=== PATIENT | male | born 1995 | race Caucasian/White ===

== ENCOUNTER 2019-07-06 16:57 | Inpatient (IN) ==
[2019-07-06] MEDS ORDERED: *HR* Methadone 10 MG TABLET PO ONE (19:25)
[2019-07-06] MEDS ORDERED: 0.9 % Sodium Chloride 1,000 ML IVC ONE (19:51)
[2019-07-06 20:26] LABS: Hematocrit 37.2 % (37.5-50.1); Hemoglobin 12.1 g/dL (12.9-16.9); Lymphocytes # 0.2 K/mcL (0.6-4.6); Mean Corpuscular HGB Conc 32.5 g/dL (31.6-35.5); Mean Corpuscular Hemoglobin 29.7 pg (28.0-33.3); Mean Corpuscular Volume 91.4 fL (83.0-100.0); Mean Platelet Volume 10.4 fL (9.4-12.4); Platelet Count 169 K/mcL (140-400); Red Blood Count 4.07 M/mcL (4.19-5.50); Red Cell Distribution Width 14.3 % (11.5-14.5); White Blood Count 6.9 K/mcL (4.3-11.1)
[2019-07-06 20:48] LABS: Alanine Aminotransferase 50 Units/L (7-52); Albumin 3.3 g/dL (3.5-5.7); Albumin/Globulin Ratio 1.7 (1.1-2.2); Alkaline Phosphatase 60 Units/L (34-104); Aspartate Amino Transferase 76 Units/L (13-39); BUN/Creatinine Ratio 20 (6-26); Bilirubin,Direct 0.7 mg/dL (0.0-0.2); Bilirubin,Indirect 0.4 mg/dL (0.0-1.2); Bilirubin,Total 1.1 mg/dL (0.3-1.0); Blood Urea Nitrogen 29 mg/dL (6-20); Calcium 7.8 mg/dL (8.6-10.3); Carbon Dioxide 21 mEq/L (23-29); Chloride 108 mEq/L (98-107); Glucose 126 mg/dL (70-105); Magnesium 1.3 mg/dL (1.6-2.6); Osmolality,Calculated 289 (280-300); Potassium 3.2 mEq/L (3.5-5.1); Sodium 136 mEq/L (136-145); Total Protein 5.3 g/dL (6.4-8.9); eGFR For African Americans > 60 (> 60); eGFR For Non-African Americans 60 (> 60)
[2019-07-06 20:57] LABS: Band Neutrophils % 15.6 % (0-4); Lymphocytes % 3.1 %; Monocytes # 0.4 K/mcL (0.0-1.3); Monocytes % 6.3 %; Neutrophils # 6.3 K/mcL (1.6-8.9); Platelet Estimate Normal (Normal)
[2019-07-06 21:02] LABS: INR 1.6
[2019-07-06] MEDS ORDERED: Potassium Chloride Elixir 20 MEQ/15 ML UDC PO ONE (21:06)
[2019-07-06] MEDS ORDERED: Ondansetron 4 MG/2 ML VIAL IVP PRN (21:06)
[2019-07-06] MEDS ORDERED: Isovue-370 500 ML BOTTLE IVP ONE (21:07)
[2019-07-06] MEDS ORDERED: Ringers Solution, Lactated 1,000 ML IVC SCH (21:15)
[2019-07-06 21:23] LABS: Ethanol < 10 mg/dL (Less than 10)
--- NOTE | 2019-07-06 21:36 | Internal Med History&Physical ---
Date of Encounter: 07/06/19 Time of Encounter: 21:34 Internal Medicine - H&P: HPI Chief complaint: shaky Admitted From: Home Plans for Post Hospital Care: Home History of present illness: Luis Carlos Braun is a 24 year old man with mood and substance use disorders who was taken by his mother to [facility] with complaints of shakes, stomach cramps and feeling achy all over his body. He reports his last heroin use being a day or 2 ago. He also admitted to auditory and visual hallucinations. His mother says he felt him burning up and with chills while at home. At [facility] it was initially presumed he was undergoing a simple withdrawal syndrome however because he was noted febrile there, he was sent here for further evaluation. He admits to having some diarrhea but no dysuria, chest pain, dyspnea or cough. He denies any other complaints than the aforementioned at this time. Vitals: Reviewed General: Well developed but disheveled and unkempt young man lying comfortably in bed in [facility] Skin: Warm, dry and dirty. HEENT: Moist mucous membranes. No conjunctivae pallor. Neck: No lymphadenopathy. No JVD. No carotid bruits. No palpable thyroid. Chest: Normal thoracic expansion. Normal breath sounds. Clear to auscultation. Heart: Normal S1 & S2; tachycardic. No rubs or murmurs. Abdomen: Non-distended, soft and non-tender to palpation. No peritoneal reaction. Extremities: No clubbing, cyanosis or edema. No calf tenderness. Normal distal pulses. Neurological: Awake, alert and oriented to person, place and time. No focal deficits. Psych: Affect appropriate. Assessment/Plan 1. SIRS: As evidenced by tachycardia and fever. Also seen to be leukopenic with high lactate and with low blood pressures. No evidence of acute infection is present at this time on overt physical exam however given his history, we will need to evaluate for any occult sources. Will send peripheral blood cultures, get a CT scan with contrast of his chest, abdomen and pelvis. Thus far there is no suggestion of skin/soft tissue infection, respiratory, genitourinary, gastrointestinal or [employer]CIAL [employer]ORDING [employer] infection. Will follow up on scans and further studies before commencing antimicrobials if deemed necessary as all these signs could still very well be from his withdrawal syndrome. In the interim provide fluid resuscitation. 2. Substance use disorder: The patient is seen to have both opiates and amphetamines in his system. He is currently undergoing withdrawal symptoms as evidenced by his loose stool, abdominal cramping, generalized aching. Will give a 10mg dose of methadone tonight and if necessary will give benzos/neuroleptics to counter agitation and hallucinations. 3. Abnormal LFTs: Seen to have an AST elevation. Will check ethanol level to ensure this isnt the cause. He does have known viral hepatitis C however. Monitor trend. 4. DVT prophylaxis: Antiembolic stockings ordered. 5. Mood disorder: He has a history of anxiety and depression. He may benefit from social work msw and counseling as an outpatient. 6. Tobacco use disorder: 5 minutes were spent counseling and educating the patient on this habit. business and services instructor and resources were made available. Past Med Surg Social Fam HX - Past Medical History Medical history: hepatitis Additional medical history: latent TB Psychiatric history: anxiety, depression - Past Surgical History Surgical History: no surgical history - Social History Smoking Status: Current every day smoker Packs per day: 1 Smokeless Tobacco Status: No Alcohol use: none Drug use: opiates - Family History Mother Hx Family Medical Disorders: No Internal Medicine - H&P: Meds No Known Home Drugs 07/06/19 [History] Allergy/AdvReac Type Severity Reaction Status Date / Time Amoxicillin Allergy Hives Verified 07/06/19 15:28 doxycycline Allergy Hives Verified 07/06/19 15:28 Penicillins Allergy Hives Verified 07/06/19 15:28 All Systems PM: A 10-system review of systems was performed and is negative for pertinent findings except as documented above in the HPI. - Constitutional Vitals: Temp Pulse Resp BP Pulse Ox 98.1 F 105 20 82/52 99 07/06/19 19:21 07/06/19 19:21 07/06/19 19:21 07/06/19 20:06 07/06/19 19:21 Exam: . Internal Med - H&P Results - Labs CBC & Chem 7: 07/06/19 20:02 07/06/19 20:02 Labs: Short CBC 07/06/19 Range/Units 20:02 WBC 6.9 D (4.3-11.1) K/mcL Hgb 12.1 L D (12.9-16.9) g/dL Hct 37.2 L (37.5-50.1) % Plt Count 169 (140-400) K/mcL Neutrophils # 6.3 (1.6-8.9) K/mcL BMP 07/06/19 20:02 Sodium 136 Potassium 3.2 L Chloride 108 H Carbon Dioxide 21 L BUN 29 H Creatinine 1.44 H Glucose 126 H Calcium 7.8 L Liver Function 07/06/19 Range/Units 20:02 Total Bilirubin 1.1 H (0.3-1.0) mg/dL Direct Bilirubin 0.7 H (0.0-0.2) mg/dL AST 76 H (13-39) Units/L ALT 50 (7-52) Units/L Alkaline Phosphatase 60 (34-104) Units/L Albumin 3.3 L (3.5-5.7) g/dL - Time Spent With Patient Total time spent is greater than 50% in coordination of care (as documented) at patient's floor/unit and/or counseling patient:
[2019-07-06] MEDS ORDERED: *HR* LORazepam 1 MG TABLET PO ONE (22:00)
[2019-07-06] MEDS: 0.9 % Sodium Chloride 1,000 ML IVC SCH (22:03)
[2019-07-07] MEDS: 0.9 % Sodium Chloride 1,000 ML IVC SCH (03:11)
[2019-07-07] MEDS ORDERED: Nicotine 2 MG GUM BC PRN (07:53)
[2019-07-07] MEDS: Nicotine 21 MG PATCH.TD24 TD SCH (08:13)
--- NOTE | 2019-07-07 08:49 | Internal Med Progress Note ---
Hospitalist Progress Note - Encounter Date of Encounter: 07/07/19 Time of Encounter: 08:49 - Subjective Interval History: Patient was seen and examined at bedside. Patient was uncomfortable this morning, complaining of body aches and pains throughout his whole body that he attributed to heroin withdrawal. Patient stated multiple times that he would like to leave the hospital. Endorses feeling nauseous and has chills, but no vomiting or fevers. Patient denies any chest pain or palpitations. - Exam Vitals: Temp Pulse Resp BP Pulse Ox 98.2 F 90 16 102/62 100 07/07/19 08:25 07/07/19 08:25 07/07/19 08:25 07/07/19 08:25 07/07/19 08:25 Exam: GEN: Uncomfortable-appearing, NAD, conversant. HEAD: Normocephalic, atraumatic. EYES: PERRL, pupils less than 2 mm, EOMI, anicteric. ENT: MMM. oropharynx without erythema or drainage. NECK: Supple. No LAD. No stiffness or restricted ROM. No tracheal deviation. HEART: Regular rate and regular rhythm, normal S1/S2, no m/r/g. LUNGS: CTAB, good air exchange bilaterally. No wheezing, rubs, or rhonchi. ABDO: Soft, diffusely tender, nondistended with active bowel sounds. Firm, but no rebound/JVD/guarding. : No suprapubic tenderness or CVA tenderness. BACK: No obvious stepoffs or deformities. EXT: Without cyanosis, clubbing or edema. SKIN: Warm and dry without any rash. NEURO: Grossly nonfocal. Alert and oriented, moving all 4 extremities. CN not formally tested but appear grossly intact. Observed to ambulate with normal gait. PSYCH: Normal affect, anxious appearing. - Assessment and Plan (1) Sepsis associated hypotension Current Visit: Yes Status: Acute Assessment and Plan: Patient initially had 3/4 criteria for SIRS at [place] ED: fever, tachycardia, hypotension. Patient had elevated lactate of 2.9. Was given 2 L normal saline, [address] scan on 07/06 showed bilateral lower lobe interstitial edema, periportal edema, gallbladder wall thickening. No definite source of infection, however concerning for endocarditis and heart failure. Low concern for meningitis, given lack of focal neurologic deficits. Low concern for UTI, given normal UA. No evidence of soft tissue infection or abscess. Low concern for pneumonia, given chest CT results. Plan: - Started empiric treatment with vancomycin and cefepime - Blood cultures pending - Bolus 1 L NS since BPs in 80s to 90s systolic. - Consider pressors if persistently hypotensive (2) Fluid overload Current Visit: Yes Status: Acute Assessment and Plan: Patient has evidence of fluid overload based on CT scan, possibly secondary to heart failure, endocarditis. A TTE was performed on 07/07 which showed LVEF 60%, no vegetations. Still high concern for endocarditis given history of IVDU. Plan: - Cardiology consulted - Consider getting SANDRA (3) Heroin withdrawal Current Visit: Yes Status: Acute Assessment and Plan: Patient presented in opiate withdrawal with cramps and body pains, pinpoint pupils. UDS positive for opiates, amphetamines. Received 10 mg of methadone yesterday. Plan: - No benzos/clonidine due to hypotension - Bentyl PRN for abdominal cramps (4) Abnormal liver enzymes Current Visit: Yes Status: Acute Assessment and Plan: Patient did have an elevated AST of 72. Concern for liver damage in the setting of possible endocarditis. Ethanol level negative. Does have known hepatitis C. - Will continue to trend LFTs (5) Substance abuse Current Visit: Yes Status: Acute Assessment and Plan: Has a history of heroin abuse, tobacco abuse. - Will continue smoking and substance abuse counseling (6) Mood disorder Current Visit: Yes Status: Acute Assessment and Plan: Has a history of depression, anxiety. May benefit from social work consult and outpatient follow-up. (7) Electrolyte abnormality Current Visit: Yes Status: Acute Assessment and Plan: Low potassium of 3.2 on 07/06. - Repleted K orally with elixir - Repleated Mg 2g IV DVT Prophylaxis: - SCDs - Summary of Assessment and Plan Summary of Assessment and Plan: Abdomen/Pelvis CT 07/06/19 21:07 IMPRESSION: Bilateral lower lobe interstitial edema. This may represent manifestation of pneumonia or noncardiogenic pulmonary edema. Mildly enlarged mediastinal and right hilar lymph nodes, likely reactive. There is periportal edema. This is a nonspecific finding that may be seen with acute infection/inflammation, trauma and fluid overload. The liver is enlarged and hepatitis is a consideration. Edematous gallbladder wall thickening and possible pericholecystic fluid. This may be reactive to adjacent liver disease. Intrinsic gallbladder disease not excluded. Mild mural thickening suspected in the right colon/cecum. Nonspecific colitis should be considered. Retroperitoneal fat stranding in the upper abdomen particularly in the region of the celiac axis and gastrohepatic ligament. D/ / Antony Baker MD / Antony Baker MD Interpreting Provider: Antony Baker MD Chest CT 07/06/19 21:07 IMPRESSION: Bilateral lower lobe interstitial edema. This may represent manifestation of pneumonia or noncardiogenic pulmonary edema. Mildly enlarged mediastinal and right hilar lymph nodes, likely reactive. There is periportal edema. This is a nonspecific finding that may be seen with acute infection/inflammation, trauma and fluid overload. The liver is enlarged and hepatitis is a consideration. Edematous gallbladder wall thickening and possible pericholecystic fluid. This may be reactive to adjacent liver disease. Intrinsic gallbladder disease not excluded. Mild mural thickening suspected in the right colon/cecum. Nonspecific colitis should be considered. Retroperitoneal fat stranding in the upper abdomen particularly in the region of the celiac axis and gastrohepatic ligament. D/ / Antony Baker MD / Antony Baker MD Interpreting Provider: Antony Baker MD Echocardiogram 07/07/19 07:25 Impressions: LVEF 60%. Normal LV chamber size, wall thickness and function. Normal left ventricular diastolic function. Normal right ventricular structure and function. No evidence of pulmonary hypertension. No significant valvular dysfunction. No vegetations visualized. Left Ventricular Wall Motion: Rest Echo Findings All wall segments showed normal motion. Findings: Study Quality * Technically adequate exam. ECG Findings * Normal sinus rhythm. Left Ventricle * LVEF 60%. * Normal LV chamber size, wall thickness and function. * Normal left ventricular diastolic function. Right Ventricle * Normal right ventricular structure and function. Left Atrium * Normal left atrial size. Right Atrium * Normal right atrial size. Interatrial Septum * No evidence of PFO by color Doppler. Aortic Valve * Trileaflet aortic valve. * Normal aortic valve function. * No aortic regurgitation. * No aortic stenosis. Mitral Valve * Normal mitral valve structure and function. * No mitral regurgitation. * No mitral stenosis. Tricuspid Valve * Normal tricuspid valve structure and function. * Trace tricuspid regurgitation. * No evidence of pulmonary hypertension. Pulmonic Valve * Normal pulmonic valve structure and function. * Trace pulmonic regurgitation. Aorta * Normally sized aortic root. Pericardium * There is a trivial pericardial effusion present. IVC * Normal IVC dimensions and inspiratory collapse. Pulmonary Artery * Normal visualized portions of the main pulmonary artery. - Time Spent with Patient Total time spent is greater than 50% in coordination of care (as documented) at patient's floor/unit and/or counseling patient: less than 15 minutes Plan of Care Discussed with: patient Internal Medicine: Result - Labs CBC & Chem 7: 07/07/19 08:50 07/07/19 08:50 Labs: Short CBC 07/06/19 Range/Units 20:02 WBC 6.9 D (4.3-11.1) K/mcL Hgb 12.1 L D (12.9-16.9) g/dL Hct 37.2 L (37.5-50.1) % Plt Count 169 (140-400) K/mcL Neutrophils # 6.3 (1.6-8.9) K/mcL BMP 07/06/19 20:02 Sodium 136 Potassium 3.2 L Chloride 108 H Carbon Dioxide 21 L BUN 29 H Creatinine 1.44 H Glucose 126 H Calcium 7.8 L Liver Function 07/06/19 Range/Units 20:02 Total Bilirubin 1.1 H (0.3-1.0) mg/dL Direct Bilirubin 0.7 H (0.0-0.2) mg/dL AST 76 H (13-39) Units/L ALT 50 (7-52) Units/L Alkaline Phosphatase 60 (34-104) Units/L Albumin 3.3 L (3.5-5.7) g/dL - ABG Interpretation ABG results: PT/INR, D-dimer PT 18.0 Seconds (9.4-12.1) H 07/06/19 20:02 - Impressions Impressions Abdomen/Pelvis CT 07/06/19 21:07 IMPRESSION: Bilateral lower lobe interstitial edema. This may represent manifestation of pneumonia or noncardiogenic pulmonary edema. Mildly enlarged mediastinal and right hilar lymph nodes, likely reactive. There is periportal edema. This is a nonspecific finding that may be seen with acute infection/inflammation, trauma and fluid overload. The liver is enlarged and hepatitis is a consideration. Edematous gallbladder wall thickening and possible pericholecystic fluid. This may be reactive to adjacent liver disease. Intrinsic gallbladder disease not excluded. Mild mural thickening suspected in the right colon/cecum. Nonspecific colitis should be considered. Retroperitoneal fat stranding in the upper abdomen particularly in the region of the celiac axis and gastrohepatic ligament. D/ / Antony Baker MD / Antony Baker MD Interpreting Provider: Antony Baker MD Chest CT 07/06/19 21:07 IMPRESSION: Bilateral lower lobe interstitial edema. This may represent manifestation of pneumonia or noncardiogenic pulmonary edema. Mildly enlarged mediastinal and right hilar lymph nodes, likely reactive. There is periportal edema. This is a nonspecific finding that may be seen with acute infection/inflammation, trauma and fluid overload. The liver is enlarged and hepatitis is a consideration. Edematous gallbladder wall thickening and possible pericholecystic fluid. This may be reactive to adjacent liver disease. Intrinsic gallbladder disease not excluded. Mild mural thickening suspected in the right colon/cecum. Nonspecific colitis should be considered. Retroperitoneal fat stranding in the upper abdomen particularly in the region of the celiac axis and gastrohepatic ligament. D/ / Antony Baker MD / Antony Baker MD Interpreting Provider: Antony Baker MD Consult Discharge Plan - Plan Referrals: NONE,PCP [Primary Care Provider] -
[2019-07-07 09:24] LABS: Hematocrit 35.4 % (37.5-50.1); Hemoglobin 11.3 g/dL (12.9-16.9); Mean Corpuscular HGB Conc 31.9 g/dL (31.6-35.5); Mean Corpuscular Hemoglobin 29.6 pg (28.0-33.3); Mean Corpuscular Volume 92.7 fL (83.0-100.0); Mean Platelet Volume 10.9 fL (9.4-12.4); Platelet Count 178 K/mcL (140-400); Red Blood Count 3.82 M/mcL (4.19-5.50)
[2019-07-07 09:25] LABS: White Blood Count 26.4 K/mcL (4.3-11.1)
[2019-07-07 09:27] LABS: VBG HCO3 20 mEq/L (21-27); VBG PCO2 49 mmHg (41-51); VBG PH 7.21 pH Units (7.32-7.42); VBG PO2 39 mmHg (25-50)
[2019-07-07 09:32] LABS: INR 1.8; Prothrombin Time 20.2 Seconds (9.4-12.1)
[2019-07-07 09:54] LABS: Lymphocytes # 1.3 K/mcL (0.6-4.6); Neutrophils # 23.5 K/mcL (1.6-8.9); Platelet Estimate Normal (Normal)
[2019-07-07 10:08] LABS: Alanine Aminotransferase 85 Units/L (7-52); Albumin 3.1 g/dL (3.5-5.7); Albumin/Globulin Ratio 1.4 (1.1-2.2); Alkaline Phosphatase 70 Units/L (34-104); Aspartate Amino Transferase 87 Units/L (13-39); BUN/Creatinine Ratio 20 (6-26); Bilirubin,Direct 0.5 mg/dL (0.0-0.2); Bilirubin,Indirect 0.4 mg/dL (0.0-1.2); Bilirubin,Total 0.9 mg/dL (0.3-1.0); Blood Urea Nitrogen 25 mg/dL (6-20); Calcium 7.4 mg/dL (8.6-10.3); Carbon Dioxide 20 mEq/L (23-29); Chloride 112 mEq/L (98-107); Globulin 2.2 g/dL (2.4-3.5); Glucose 155 mg/dL (70-105); Magnesium 1.5 mg/dL (1.6-2.6); Osmolality,Calculated 296 (280-300); Phosphorous 3.3 mg/dL (2.7-4.5); Potassium 4.3 mEq/L (3.5-5.1); Sodium 139 mEq/L (136-145); Total Protein 5.3 g/dL (6.4-8.9); Troponin I < 0.03 ng/mL (< 0.04); eGFR For African Americans > 60 (> 60); eGFR For Non-African Americans > 60 (> 60)
[2019-07-07] MEDS ORDERED: *HR* Methadone 10 MG TABLET PO ONE (10:23)
[2019-07-07] MEDS ORDERED: Nicotine 14 MG PATCH.TD24 TD SCH (10:30)
[2019-07-07] MEDS ORDERED: Cefepime HCl 2,000 MG in Water for inj. (sterile) 10 ML IVP SCH (11:00)
[2019-07-07] MEDS ORDERED: 0.9 % Sodium Chloride 1,000 ML IVC STA (11:06)
[2019-07-07] MEDS ORDERED: Ketorolac 30 MG/ML VIAL IVP ONE (11:08)
[2019-07-07] MEDS: Cefepime HCl 2,000 MG in Water for inj. (sterile) 20 ML IVP SCH ×2 (11:46→17:27)
--- NOTE | 2019-07-07 14:36 | Cardiology Consult Note ---
<Jan Dale - Last Filed: 07/07/19 14:52> Date of Encounter: 07/07/19 Time of Encounter: 14:32 Assessment and Plan (1) Sepsis associated hypotension Current Visit: Yes Status: Acute Patient initially had 3/4 criteria for SIRS at [facility] ED: fever, tachycardia, hypotension. No definite source of infection. Started empiric treatment with vancomycin and cefepime. Blood cultures pending. IVDU with initial concern for endocarditis. However, TTE showed preserved EF with no significant valvular dysfunction and no vegetations visualized. Can consider SANDRA if blood cultures are positive for staph. No urgent need for SANDRA. If warranted, would be Wednesday. Pt ate lunch <2 hours ago. If he develops more profound hypotension or increased O2 requirements, can repeat surface TTE to re-evaluate valvular function. BNP is borderline--156. There is no evidence of fluid overload on exam or evidence of CHF on TTE--EF 60% with normal diastolic function. Will discuss and review with Dr. Nuñez. Discussion w patient/family: The assessment and plan as outlined above was discussed with the patient and/or family members who expressed understanding and agreement. All questions were answered. Thank you for involving us in the care of your patient. Please call with any questions. I will discuss all the above with Dr. Nuñez and make changes as necessary. History of Present Illness Consult date: 07/07/19 Consult reason: evaluate for CHF, endocarditis Chief complaint: fever History of present illness: Mr. Braun is a 24 year old male with mood and substance use disorders who was taken by his mother to [facility] ER with complaints of shakes, stomach cramps and feeling achy all over his body. He reports his last heroin use being 2-3 days ago.Admits to auditory and visual hallucinations. His mother says he felt him burning up and with chills while at home. Per mother, he has been acting different since May when he came from [place]. At [facility] it was initially presumed he was undergoing a simple withdrawal syndrome however because he was noted febrile there, he was sent here for further evaluation. He admits to having some diarrhea but no dysuria. He now reports chest pain and dyspnea. WBC 26.4. Chest CT Bilateral lower lobe interstitial edema. This may represent manifestation of pneumonia or noncardiogenic pulmonary edema. There is periportal edema. This is a nonspecific finding that may be seen with acute infection/inflammation, trauma and fluid overload. The liver is enlarged and hepatitis is a consideration. Edematous gallbladder wall thickening and possible pericholecystic fluid. This may be reactive to adjacent liver disease. Intrinsic gallbladder disease not excluded. BNP 156, troponin negative. TTE EF preserved, no valvular vegetation noted. Cardiology consulted for further recs. Past Med Surg Social Fam HX - Past Medical History Medical history: hepatitis Additional medical history: latent TB Psychiatric history: anxiety, depression - Past Surgical History Surgical History: no surgical history - Social History Smoking Status: Current every day smoker Packs per day: 1 Smokeless Tobacco Status: No Alcohol use: none Drug use: opiates - Family History Mother Hx Family Medical Disorders: No Medications and Allergies No Known Home Drugs 07/06/19 [History] Allergy/AdvReac Type Severity Reaction Status Date / Time Amoxicillin Allergy Hives Verified 07/06/19 15:28 doxycycline Allergy Hives Verified 07/06/19 15:28 Penicillins Allergy Hives Verified 07/06/19 15:28 All Systems Review: The remainder of the systems were reviewed and are negative - Constitutional Constitutional: chills - Cardiovascular Cardiovascular: as per HPI, chest pain at rest, diaphoresis, dyspnea at rest - Respiratory Respiratory: dyspnea - Psychiatric Psychiatric: hallucinations Physical Examination Vital Signs, Last 4 Hours Temp Pulse Resp BP Pulse Ox 07/07/19 14:05 93/50 07/07/19 10:53 98.7 F 95 20 85/44 96 Vital Signs Temp Pulse Resp BP Pulse Ox 07/07/19 14:05 93/50 07/07/19 10:53 98.7 F 95 20 85/44 96 07/07/19 08:25 98.2 F 90 16 102/62 100 07/07/19 08:06 98 07/07/19 04:55 98 F 91 20 87/49 98 07/06/19 23:02 98.1 F 101 20 90/45 98 07/06/19 20:06 82/52 07/06/19 19:21 98.1 F 105 20 79/40 99 Intake and Output 07/06/19 07/07/19 07/07/19 23:59 07:59 15:59 Intake Total 240 / 240 1000 / 1000 Output Total 450 / 450 0 / 0 Balance -210 / -210 1000 / 1000 0 / 1000 Intake: IV Fluids 1000 / 1000 0.9 % Sodium Chloride 1,000 ML 1000 / 1000 @ 200 mls/hr IVC .Q5H [facility] Rx#: [id number] Oral 240 / 240 Output: Urine 450 / 450 0 / 0 Other: Weight 59.9 kg General: Conversant, No Apparent Distress HEENT: Atraumatic, Normocephaly, Mucus Membranes Moist Neck: No JVD, Normal carotid pulses Cardiac: Reg Rate and Rhythm, Normal S1 and S2, No Murmur Lungs: Normal Breath Sounds, No Wheeze, Rales, Rhonchi Neuro: Alert and responsive, No focal deficits noted Abdomen: Soft, Non-Tender Skin: No rashes noted on visualized skin Musculoskeletal: No Chest Wall Tenderness Extremities: No Clubbing, No Cyanosis, No Edema, Normal Pulses Results 07/07/19 08:50 07/07/19 08:50 Lab Results 07/06/19 07/06/19 07/06/19 20:02 20:02 20:02 WBC 6.9 D Hgb 12.1 L D Hct 37.2 L Plt Count 169 INR APTT 26.7 Sodium 136 Potassium 3.2 L Chloride 108 H Carbon Dioxide 21 L BUN 29 H Creatinine 1.44 H Glucose 126 H Calcium 7.8 L Magnesium 1.3 L Total Bilirubin 1.1 H AST 76 H ALT 50 Alkaline Phosphatase 60 Troponin I B-Natriuretic Peptide 07/06/19 07/07/19 07/07/19 20:02 08:50 08:50 WBC 26.4 H D Hgb 11.3 L Hct 35.4 L Plt Count 178 INR 1.6 1.8 APTT Sodium Potassium Chloride Carbon Dioxide BUN Creatinine Glucose Calcium Magnesium Total Bilirubin AST ALT Alkaline Phosphatase Troponin I B-Natriuretic Peptide 07/07/19 07/07/19 08:50 08:50 WBC Hgb Hct Plt Count INR APTT Sodium 139 Potassium 4.3 D Chloride 112 H Carbon Dioxide 20 L BUN 25 H Creatinine 1.27 Glucose 155 H Calcium 7.4 L Magnesium 1.5 L Total Bilirubin 0.9 AST 87 H ALT 85 H Alkaline Phosphatase 70 Troponin I < 0.03 B-Natriuretic Peptide 156 H Short CBC 07/07/19 07/06/19 Range/Units 08:50 20:02 WBC 26.4 H D 6.9 D (4.3-11.1) K/mcL Hgb 11.3 L 12.1 L D (12.9-16.9) g/dL Hct 35.4 L 37.2 L (37.5-50.1) % Plt Count 178 169 (140-400) K/mcL Neutrophils # 23.5 H 6.3 (1.6-8.9) K/mcL BMP 07/07/19 07/06/19 Range/Units 08:50 20:02 Sodium 139 136 (136-145) mEq/L Potassium 4.3 D 3.2 L (3.5-5.1) mEq/L Chloride 112 H 108 H (98-107) mEq/L Carbon Dioxide 20 L 21 L (23-29) mEq/L BUN 25 H 29 H (6-20) mg/dL Creatinine 1.27 1.44 H (0.70-1.30) mg/dL Glucose 155 H 126 H (70-105) mg/dL Calcium 7.4 L 7.8 L (8.6-10.3) mg/dL Cardiac Enzymes 07/07/19 Range/Units 08:50 Troponin I < 0.03 (< 0.04) ng/mL Liver Function 07/07/19 07/06/19 Range/Units 08:50 20:02 Total Bilirubin 0.9 1.1 H (0.3-1.0) mg/dL Direct Bilirubin 0.5 H 0.7 H (0.0-0.2) mg/dL AST 87 H 76 H (13-39) Units/L ALT 85 H 50 (7-52) Units/L Alkaline Phosphatase 70 60 (34-104) Units/L Albumin 3.1 L 3.3 L (3.5-5.7) g/dL Impressions Abdomen/Pelvis CT 07/06/19 21:07 IMPRESSION: Bilateral lower lobe interstitial edema. This may represent manifestation of pneumonia or noncardiogenic pulmonary edema. Mildly enlarged mediastinal and right hilar lymph nodes, likely reactive. There is periportal edema. This is a nonspecific finding that may be seen with acute infection/inflammation, trauma and fluid overload. The liver is enlarged and hepatitis is a consideration. Edematous gallbladder wall thickening and possible pericholecystic fluid. This may be reactive to adjacent liver disease. Intrinsic gallbladder disease not excluded. Mild mural thickening suspected in the right colon/cecum. Nonspecific colitis should be considered. Retroperitoneal fat stranding in the upper abdomen particularly in the region of the celiac axis and gastrohepatic ligament. D/ / Antony Baker MD / Antony Baker MD Interpreting Provider: Antony Baker MD Chest CT 07/06/19 21:07 IMPRESSION: Bilateral lower lobe interstitial edema. This may represent manifestation of pneumonia or noncardiogenic pulmonary edema. Mildly enlarged mediastinal and right hilar lymph nodes, likely reactive. There is periportal edema. This is a nonspecific finding that may be seen with acute infection/inflammation, trauma and fluid overload. The liver is enlarged and hepatitis is a consideration. Edematous gallbladder wall thickening and possible pericholecystic fluid. This may be reactive to adjacent liver disease. Intrinsic gallbladder disease not excluded. Mild mural thickening suspected in the right colon/cecum. Nonspecific colitis should be considered. Retroperitoneal fat stranding in the upper abdomen particularly in the region of the celiac axis and gastrohepatic ligament. D/ / Antony Baker MD / Antony Baker MD Interpreting Provider: Antony Baker MD Echocardiogram 07/07/19 07:25 Impressions: LVEF 60%. Normal LV chamber size, wall thickness and function. Normal left ventricular diastolic function. Normal right ventricular structure and function. No evidence of pulmonary hypertension. No significant valvular dysfunction. No vegetations visualized. Left Ventricular Wall Motion: Rest Echo Findings All wall segments showed normal motion. Findings: Study Quality * Technically adequate exam. ECG Findings * Normal sinus rhythm. Left Ventricle * LVEF 60%. * Normal LV chamber size, wall thickness and function. * Normal left ventricular diastolic function. Right Ventricle * Normal right ventricular structure and function. Left Atrium * Normal left atrial size. Right Atrium * Normal right atrial size. Interatrial Septum * No evidence of PFO by color Doppler. Aortic Valve * Trileaflet aortic valve. * Normal aortic valve function. * No aortic regurgitation. * No aortic stenosis. Mitral Valve * Normal mitral valve structure and function. * No mitral regurgitation. * No mitral stenosis. Tricuspid Valve * Normal tricuspid valve structure and function. * Trace tricuspid regurgitation. * No evidence of pulmonary hypertension. Pulmonic Valve * Normal pulmonic valve structure and function. * Trace pulmonic regurgitation. Aorta * Normally sized aortic root. Pericardium * There is a trivial pericardial effusion present. IVC * Normal IVC dimensions and inspiratory collapse. Pulmonary Artery * Normal visualized portions of the main pulmonary artery. Active Medications Dicyclomine HCl (Bentyl) 20 mg PO Q6H PRN PRN Reason: cramping Stop: 01/06/20 14:06 Cefepime HCl 2,000 mg/ Sterile (Water) 20 mls @ 300 mls/hr IVP Q8HR JONO Stop: 01/06/20 11:34 Last Admin: 07/07/19 11:46 Dose: 300 mls/hr Documented by: Vancomycin HCl 1,000 mg/ (Sodium Chloride) 250 mls @ 167 mls/hr IVPB Q12H JONO; Protocol Stop: 01/06/20 12:01 Last Admin: 07/07/19 12:59 Dose: 167 mls/hr Documented by: Nicotine (Nicoderm) 21 mg TD DAILY JONO; Protocol Stop: 01/06/20 09:01 Last Admin: 07/07/19 08:13 Dose: 21 mg Documented by: Nicotine Polacrilex (Nicorette Gum) 4 mg BC Q2H PRN PRN Reason: Nicotine Cravings Stop: 01/06/20 07:54 Last Admin: 07/07/19 08:14 Dose: 4 mg Documented by: Ondansetron HCl (Zofran) 4 mg IVP Q6HR PRN; Protocol PRN Reason: Nausea And Vomiting Stop: 01/05/20 21:07 - Imaging and Cardiology Echo: report reviewed - EKG Interpretation EKG results cardiology: personally reviewed (sinus tach, rate 119), other (12 hr tele AVG HR 97, SR) Consult Discharge Plan - Plan Referrals: NONE,PCP [Primary Care Provider] - <Lynette Nuñez - Last Filed: 07/07/19 17:41> Date of Encounter: 07/07/19 - Attending Attestation Patient was seen and evaluated independently by me. Findings, assessment and plan were discussed at length with patient, questions answered. Agree with nurse practitioner's/resident's documentation. Addition as follows, 24yoCM ho active polysubstance abuse including IVDU undergoing detox, sent from OSH for generalized pain, SIRS (fever, hypotension) which improved after IVF . Sepsis w/u and management ongoing. Consulted for suspected endocarditis and SANDRA. CTA B/L, RR, no LE edema, generalized tenderness. TTE preserved LVEF, normal RV function, no significant valvular dysfunction, no PH, no vegetation. Trop neg, BNP 156, Leukocytosis, KASIA resolving. A: SIRS, sepsis, pending blood culture polysubstance abuse, IVDU, ongoing detox P: pt has lunch and unsafe for SANDRA now SANDRA if rogelio aureus bacteremia or clinically indicated, likely need anesthesia given IVDU if respiratory distress or ECG changes, TTE stat [id number] chest CT MPRESSION: Bilateral lower lobe interstitial edema. This may represent manifestation of pneumonia or noncardiogenic pulmonary edema. Mildly enlarged mediastinal and right hilar lymph nodes, likely reactive. There is periportal edema. This is a nonspecific finding that may be seen with acute infection/inflammation, trauma and fluid overload. The liver is enlarged and hepatitis is a consideration. Edematous gallbladder wall thickening and possible pericholecystic fluid. This may be reactive to adjacent liver disease. Intrinsic gallbladder disease not excluded. Mild mural thickening suspected in the right colon/cecum. Nonspecific colitis should be considered. Retroperitoneal fat stranding in the upper abdomen particularly in the region of the celiac axis and gastrohepatic ligament. [id number] TTE Impressions: LVEF 60%. Normal LV chamber size, wall thickness and function. Normal left ventricular diastolic function. Normal right ventricular structure and function. No evidence of pulmonary hypertension. No significant valvular dysfunction. No vegetations visualized. Lynette Nuñez MD, PhD Assessment and Plan Discussion w patient/family: The assessment and plan as outlined above was discussed with the patient and/or family members who expressed understanding and agreement. All questions were answered. Thank you for involving us in the care of your patient. Please call with any questions. History of Present Illness History of present illness: Mr. Braun is a 24 year old male All Systems Review: The remainder of the systems were reviewed and are negative Physical Examination Vital Signs, Last 4 Hours Temp Pulse Resp BP Pulse Ox 07/07/19 16:52 98.5 F 97 18 88/40 98 07/07/19 14:05 93/50 Results 07/07/19 08:50 07/07/19 08:50 Lab Results 07/06/19 07/06/19 07/06/19 20:02 20:02 20:02 WBC 6.9 D Hgb 12.1 L D Hct 37.2 L Plt Count 169 INR APTT 26.7 Sodium 136 Potassium 3.2 L Chloride 108 H Carbon Dioxide 21 L BUN 29 H Creatinine 1.44 H Glucose 126 H Calcium 7.8 L Magnesium 1.3 L Total Bilirubin 1.1 H AST 76 H ALT 50 Alkaline Phosphatase 60 Troponin I B-Natriuretic Peptide 07/06/19 07/07/19 07/07/19 20:02 08:50 08:50 WBC 26.4 H D Hgb 11.3 L Hct 35.4 L Plt Count 178 INR 1.6 1.8 APTT Sodium Potassium Chloride Carbon Dioxide BUN Creatinine Glucose Calcium Magnesium Total Bilirubin AST ALT Alkaline Phosphatase Troponin I B-Natriuretic Peptide 07/07/19 07/07/19 08:50 08:50 WBC Hgb Hct Plt Count INR APTT Sodium 139 Potassium 4.3 D Chloride 112 H Carbon Dioxide 20 L BUN 25 H Creatinine 1.27 Glucose 155 H Calcium 7.4 L Magnesium 1.5 L Total Bilirubin 0.9 AST 87 H ALT 85 H Alkaline Phosphatase 70 Troponin I < 0.03 B-Natriuretic Peptide 156 H
[2019-07-07] MEDS ORDERED: Calcium Gluconate 2,000 MG in 0.9 % Sodium Chloride 100 ML IVPB ONE (17:06)
[2019-07-07 17:21] LABS: Hepatitis B Surface Antigen Nonreactive (Nonreactive)
[2019-07-07 17:50] LABS: Hepatitis B Core IgM Nonreactive (Nonreactive)
[2019-07-07 17:53] LABS: Hepatitis A Antibody IgM Nonreactive (Nonreactive)
[2019-07-07] MEDS ORDERED: Cefepime HCl 1,000 MG in Water for inj. (sterile) 10 ML IVP SCH (18:00)
[2019-07-07 19:16] LABS: Adenovirus Not Detected (Not Detect); Coronavirus 229E Not Detected (Not Detect); Coronavirus HKU1 Not Detected (Not Detect); Coronavirus NL63 Not Detected (Not Detect); Coronavirus OC43 Not Detected (Not Detect); Human Metapneumovirus Not Detected (Not Detect); Human Rhinovirus/Enterovirus Not Detected (Not Detect); Influenza A Subtype 2009 H1 Not Detected (Not Detect); Influenza A Untypeable Not Detected (Not Detect)
[2019-07-07 19:17] LABS: Bordetella Pertussis Not Detected (Not Detect); Chlamydophila pneumoniae Not Detected (Not Detect); Influenza B Not Detected (Not Detect); Mycoplasma pneumoniae Not Detected (Not Detect); Parainfluenza Virus 1 Not Detected (Not Detect); Parainfluenza Virus 2 Not Detected (Not Detect); Parainfluenza Virus 3 Not Detected (Not Detect); Parainfluenza Virus 4 Not Detected (Not Detect); Respiratory Syncytial Virus Not Detected (Not Detect)
[2019-07-07 21:04] LABS: Hepatitis C Virus Antibody Reactive (Nonreactive)
[2019-07-08] MEDS: Cefepime HCl 2,000 MG in Water for inj. (sterile) 20 ML IVP SCH ×3 (00:02→16:01)
[2019-07-08 01:58] LABS: Hematocrit 31.4 % (37.5-50.1); Hemoglobin 10.3 g/dL (12.9-16.9); Mean Corpuscular HGB Conc 32.8 g/dL (31.6-35.5); Mean Corpuscular Hemoglobin 29.6 pg (28.0-33.3); Mean Corpuscular Volume 90.2 fL (83.0-100.0); Mean Platelet Volume 10.6 fL (9.4-12.4); Platelet Count 144 K/mcL (140-400); Red Blood Count 3.48 M/mcL (4.19-5.50); White Blood Count 25.9 K/mcL (4.3-11.1)
[2019-07-08 02:05] LABS: INR 1.7; Prothrombin Time 19.6 Seconds (9.4-12.1)
[2019-07-08 02:18] LABS: Alanine Aminotransferase 54 Units/L (7-52); Albumin 2.7 g/dL (3.5-5.7); Albumin/Globulin Ratio 1.3 (1.1-2.2); Alkaline Phosphatase 76 Units/L (34-104); Aspartate Amino Transferase 37 Units/L (13-39); BUN/Creatinine Ratio 23 (6-26); Bilirubin,Direct 0.1 mg/dL (0.0-0.2); Bilirubin,Indirect 0.3 mg/dL (0.0-1.2); Bilirubin,Total 0.4 mg/dL (0.3-1.0); Blood Urea Nitrogen 23 mg/dL (6-20); Calcium 7.9 mg/dL (8.6-10.3); Carbon Dioxide 21 mEq/L (23-29); Chloride 114 mEq/L (98-107); Globulin 2.1 g/dL (2.4-3.5); Glucose 104 mg/dL (70-105); Osmolality,Calculated 288 (280-300); Potassium 3.8 mEq/L (3.5-5.1); Sodium 137 mEq/L (136-145); Total Protein 4.8 g/dL (6.4-8.9); eGFR For African Americans > 60 (> 60); eGFR For Non-African Americans > 60 (> 60)
[2019-07-08 02:24] LABS: Dohle Bodies Present (Not Present); Lymphocytes # 2.1 K/mcL (0.6-4.6); Monocytes # 0.5 K/mcL (0.0-1.3); Neutrophils # 23.3 K/mcL (1.6-8.9); Platelet Estimate Normal (Normal); Smudge Cells Present (Not Present)
--- NOTE | 2019-07-08 06:57 | Internal Med Progress Note ---
Hospitalist Progress Note - Encounter Date of Encounter: 07/08/19 Time of Encounter: 06:57 - Subjective Interval History: Patient was seen and examined at bedside. No acute events overnight. Blood pressure stable in the 90s to 100 systolic overnight. Did not require fluids. Patient had no complaints this morning, had a good appetite. Patient denies any chest pain, shortness of breath, nausea, vomiting, fevers or chills. We will get a gallbladder ultrasound today. - Exam Vitals: Temp Pulse Resp BP Pulse Ox 98.1 F 84 14 90/45 100 07/08/19 02:18 07/08/19 02:18 07/08/19 02:18 07/08/19 02:18 07/08/19 02:18 Exam: GEN: Well-appearing, NAD, conversant. HEAD: Normocephalic, atraumatic. EYES: PERRL, EOMI, anicteric. ENT: MMM. oropharynx without erythema or drainage. NECK: Supple. No LAD. No stiffness or restricted ROM. No tracheal deviation. HEART: Regular rate and regular rhythm, normal S1/S2, no m/r/g. LUNGS: CTAB, good air exchange bilaterally. No wheezing, rubs, or rhonchi. ABDO: Soft, mildly tender in right upper quadrant, nondistended with active bowel sounds. Firm, but no rebound/rigidity/guarding. : No suprapubic tenderness or CVA tenderness. BACK: No obvious stepoffs or deformities. EXT: Without cyanosis, clubbing or edema. SKIN: Warm and dry without any rash. NEURO: Grossly nonfocal. Alert and oriented, moving all 4 extremities. CN not formally tested but appear grossly intact. PSYCH: Normal affect, anxious appearing. - Assessment and Plan (1) Sepsis associated hypotension Current Visit: Yes Status: Acute Assessment and Plan: Patient initially had 3/4 criteria for SIRS at [facility] ED: fever, tachycardia, hypotension. Patient had elevated lactate of 2.9. Was given 2 L normal saline, [address] scan on 07/06 showed bilateral lower lobe interstitial edema, periportal edema, gallbladder wall thickening. No definite source of infection, however concerning for endocarditis and heart failure. Low concern for meningitis, given lack of focal neurologic deficits. Low concern for UTI, given normal UA. No evidence of soft tissue infection or abscess. Low concern for pneumonia, given chest CT results. Low concern for cholecystitis with gallbladder ultrasound on 07/08 showing contracted GB with wall thickening, no evidence of acute cholecystitis Plan: - Continue empiric treatment with vancomycin and cefepime on 07/07 - Blood cultures pending, one positive with gram-negative rods - Hepatitis C antibody positive consistent with previous diagnosis of hepatitis C - Consider pressors if persistently hypotensive, her sugars have been stable today - WBC down from 26.4-25.9 today, lactate of 1, pro-calcitonin of 50 (2) Fluid overload Current Visit: Yes Status: Resolved Assessment and Plan: Patient has evidence of fluid overload based on CT scan, possibly secondary to heart failure, endocarditis. A TTE was performed on 07/07 which showed LVEF 60%, no vegetations. Still high concern for endocarditis given history of IVDU. Plan: - Cardiology consulted - Consider getting SANDRA - Today patient does not appear clinically fluid overloaded with clear lungs and no lower extremity edema - Will hold off on fluids unless persistently hypotensive (3) Heroin withdrawal Current Visit: Yes Status: Acute Assessment and Plan: Patient presented in opiate withdrawal with cramps and body pains, pinpoint pupils. UDS positive for opiates, amphetamines. Received 10 mg of methadone 07/06. Plan: - No benzos/clonidine due to hypotension - Bentyl PRN for abdominal cramps (4) Abnormal liver enzymes Current Visit: Yes Status: Acute Assessment and Plan: Patient did have an elevated AST of 72 initially. Concern for liver damage in the setting of possible endocarditis. Ethanol level negative. Does have known hepatitis C. Hep panel negative - Will continue to trend LFTs - LFTs are downturning today (5) Substance abuse Current Visit: Yes Status: Acute Assessment and Plan: Has a history of heroin abuse, tobacco abuse. - Will continue smoking and substance abuse counseling - Patient declined have further substance abuse counseling and declined social work visit (6) Mood disorder Current Visit: Yes Status: Acute Assessment and Plan: Has a history of depression, anxiety. May benefit from social work consult and outpatient follow-up. (7) Electrolyte abnormality Current Visit: Yes Status: Acute Assessment and Plan: Low potassium of 3.2 on 07/06. 3.8 today. - Repleted K orally with 20 mEq - Repleted Mg 2g IV on 07/07 DVT Prophylaxis: - SCDs - Time Spent with Patient Total time spent is greater than 50% in coordination of care (as documented) at patient's floor/unit and/or counseling patient: less than 15 minutes Plan of Care Discussed with: patient Internal Medicine: Result - Labs CBC & Chem 7: 07/08/19 01:43 07/08/19 01:43 Labs: Short CBC 07/07/19 07/08/19 Range/Units 08:50 01:43 WBC 26.4 H D 25.9 H (4.3-11.1) K/mcL Hgb 11.3 L 10.3 L (12.9-16.9) g/dL Hct 35.4 L 31.4 L (37.5-50.1) % Plt Count 178 144 (140-400) K/mcL Neutrophils # 23.5 H 23.3 H (1.6-8.9) K/mcL BMP 07/07/19 07/08/19 08:50 01:43 Sodium 139 137 Potassium 4.3 D 3.8 Chloride 112 H 114 H Carbon Dioxide 20 L 21 L BUN 25 H 23 H Creatinine 1.27 1.00 Glucose 155 H 104 Calcium 7.4 L 7.9 L Cardiac Enzymes 07/07/19 Range/Units 08:50 Troponin I < 0.03 (< 0.04) ng/mL Liver Function 07/07/19 07/08/19 Range/Units 08:50 01:43 Total Bilirubin 0.9 0.4 (0.3-1.0) mg/dL Direct Bilirubin 0.5 H 0.1 (0.0-0.2) mg/dL AST 87 H 37 (13-39) Units/L ALT 85 H 54 H (7-52) Units/L Alkaline Phosphatase 70 76 (34-104) Units/L Albumin 3.1 L 2.7 L (3.5-5.7) g/dL - ABG Interpretation ABG results: PT/INR, D-dimer PT 19.6 Seconds (9.4-12.1) H 07/08/19 01:43 - Impressions Impressions Echocardiogram 07/07/19 07:25 Impressions: LVEF 60%. Normal LV chamber size, wall thickness and function. Normal left ventricular diastolic function. Normal right ventricular structure and function. No evidence of pulmonary hypertension. No significant valvular dysfunction. No vegetations visualized. Left Ventricular Wall Motion: Rest Echo Findings All wall segments showed normal motion. Findings: Study Quality * Technically adequate exam. ECG Findings * Normal sinus rhythm. Left Ventricle * LVEF 60%. * Normal LV chamber size, wall thickness and function. * Normal left ventricular diastolic function. Right Ventricle * Normal right ventricular structure and function. Left Atrium * Normal left atrial size. Right Atrium * Normal right atrial size. Interatrial Septum * No evidence of PFO by color Doppler. Aortic Valve * Trileaflet aortic valve. * Normal aortic valve function. * No aortic regurgitation. * No aortic stenosis. Mitral Valve * Normal mitral valve structure and function. * No mitral regurgitation. * No mitral stenosis. Tricuspid Valve * Normal tricuspid valve structure and function. * Trace tricuspid regurgitation. * No evidence of pulmonary hypertension. Pulmonic Valve * Normal pulmonic valve structure and function. * Trace pulmonic regurgitation. Aorta * Normally sized aortic root. Pericardium * There is a trivial pericardial effusion present. IVC * Normal IVC dimensions and inspiratory collapse. Pulmonary Artery * Normal visualized portions of the main pulmonary artery. Consult Discharge Plan - Plan Referrals: NONE,PCP [Primary Care Provider] -
--- NOTE | 2019-07-08 08:03 | Event Note ---
Date of Encounter: 07/08/19 Time of Encounter: 08:01 - Cardiology Event Note Chart reviewed. Vitals currently stable. Saturating well on room air. Cultures still incubating, no growth at this time. Will continue to follow peripherally over the weekend. Please call if further assistance is needed. Will re-evaluate need for SANDRA on Wednesday. Will make NPO after midnight tomorrow night.
[2019-07-08] MEDS: Nicotine 21 MG PATCH.TD24 TD SCH (10:13)
[2019-07-08 15:46] VITALS: BP 101/57
--- NOTE | 2019-07-08 17:24 | Discharge Summary ---
- NOTES TO OUTPATIENT PROVIDER Notes to Outpatient Provider: Patient was admitted to the hospital for sepsis with unknown source. Blood cultures have so far grown gram-negative rods. Was treated with 2 days of vancomycin and cefepime. Patient was persistently hypertensive requiring several fluid boluses. On the third hospital day, patient was insisting on leaving against medical advice. Patient was cautioned thoroughly about the risks of leaving the hospital including worsening of infection, permanent disability, and . Patient still elected to leave AMA. Patient will be given a 7 day course of Omnicef to continue treating bacterial infection. Please follow up blood cultures. Orders not resulted at time of discharge: Pending orders 07/06/19 20:02 Culture,Blood [BC] Stat Date of Encounter: 07/08/19 Time of Encounter: 17:22 Hospital course: Luis Carlos Braun is a 24 year old man with mood and substance use disorders who was taken by his mother to [facility] with complaints of shakes, stomach cramps and feeling achy all over his body. He reports his last heroin use being a day or 2 ago. He also admitted to auditory and visual hallucinations. His mother says he felt him burning up and with chills while at home. At [facility] it was initially presumed he was undergoing a simple withdrawal syndrome however because he was noted febrile there, he was sent here for further evaluation. He admits to having some diarrhea but no dysuria, chest pain, dyspnea or cough. Upon arrival, patient was febrile, tachycardic, hypotensive likely septic shock. Elevated lactate of 2.9. Blood cultures were obtained. Pro-calcitonin of 50. The CT chest/abdomen/pelvis scan showed bilateral lobe interstitial edema, periportal edema, cold bladder wall thickening. He was given 4 L of fluids. He was started on vancomycin and cefepime. Initial presentation showed no definite source of infection however concerning for endocarditis or heart failure. A TTE was performed which showed LVEF of 60% and no vegetation. There is a low concern for meningitis, given the lack of focal neurologic deficits and meningismus. Lung concern for UTI given normal UA. No evidence of soft tissue infection or abscess. Low concern for pneumonia given chest CT findings. Gallbladder ultrasound showed a contracted GB with wall thickening, no evidence of acute cholecystitis. Patient was treated empirically with vancomycin and cefepime for 2 days. Blood culture so far has grown gram-negative rods pending sensitivities. A hepatitis C antibody was positive consistent with previous diagnosis of hepatitis C. Patient did have a transaminitis that was downtrending at discharge. Ethanol level was negative. Patient did present an opiate withdrawal with pinpoint pupils, cramps, body pains. A UDS was positive for opiates and amphetamines. Patient declined substance abuse counseling. On the third hospital day, patient was insisting on leaving against medical advice. Patient was thoroughly explained the consequences of leaving the hospital including worsening infection, permanent disability, . Patient endorsed understanding the consequences of leaving the hospital. Patient was provided 3 doses of Omnicef to further treat his bacterial infection as well as a prescription for 4 additional doses of Omnicef. Patient was provided outpatient primary care referral and return precautions to the emergency department. Discharge discussed with: patient Time spent discussing smoking cessation with patient: 3 to 10 minutes - Time Spent with Patient Total time spent providing and/or coordinating discharge services: Time spent: Less than 30 minutes - Discharge Medications Prescriptions: New Cefdinir [Omnicef] 300 mg PO BID #6 capsule Home Medications: Cefdinir [Omnicef] 300 mg PO BID #6 capsule 07/08/19 [Rx] Allergies/Adverse Reactions: Allergy/AdvReac Type Severity Reaction Status Date / Time Amoxicillin Allergy Hives Verified 07/06/19 15:28 doxycycline Allergy Hives Verified 07/06/19 15:28 Penicillins Allergy Hives Verified 07/06/19 15:28 Date of admission: 07/07/19 21:47 Primary care physician: PCP NONE Consults: 07/06/19 19:40 Consult to Vascular Ultrasound Technician [CONS] Routine Reason for SW Consult: Discharge planning. 07/07/19 13:41 Consult to Cardiology [CONS] Routine Comment: Consulting Provider: Cardiology Fe Reason for Consult: concern for endocarditis, hx of IVDU with fluid overload, elevated BNP Call Completed: Yes Discharging clinician: Seth Grace Anticipated date of discharge: 07/08/19 - Constitutional Vitals: Temp Pulse Resp BP Pulse Ox 98.2 F 74 18 101/57 97 07/08/19 15:39 07/08/19 15:39 07/08/19 15:39 07/08/19 15:39 07/08/19 15:39 Exam: GEN: Well-appearing, NAD, conversant. HEAD: Normocephalic, atraumatic. EYES: PERRL, EOMI, anicteric. ENT: MMM. oropharynx without erythema or drainage. NECK: Supple. No LAD. No stiffness or restricted ROM. No tracheal deviation. HEART: Regular rate and regular rhythm, normal S1/S2, no m/r/g. LUNGS: CTAB, good air exchange bilaterally. No wheezing, rubs, or rhonchi. ABDO: Soft, mildly tender in right upper quadrant, nondistended with active bowel sounds. Firm, but no rebound/rigidity/guarding. : No suprapubic tenderness or CVA tenderness. BACK: No obvious stepoffs or deformities. EXT: Without cyanosis, clubbing or edema. SKIN: Warm and dry without any rash. NEURO: Grossly nonfocal. Alert and oriented, moving all 4 extremities. CN not formally tested but appear grossly intact. PSYCH: Normal affect, anxious appearing. - Patient Status Disposition: Left Against Medical Advice Condition: Fair Functional capacity at discharge: independent ambulation Overall status at discharge: patient is not back to baseline - Discharge Instructions Follow Up With: NONE,PCP [Primary Care Provider] - [facility] [Outside] - Diet and Activity Activity: increase activity as tolerated, resume usual activities as tolerated Diet: advance to your usual diet
[2019-07-08] MEDS ORDERED: Naloxone 0.4 MG/ML INJ IVP ONE (18:24)
[2019-07-08] MEDS ORDERED: Aminoglycoside Consult 1 EACH MC ONE (18:34)
== END 2019-07-08 18:35 | disposition left against medical advice (07) | DRG 871 ==
LOC: 2ANU → SUATTDRO 19:04
PROVIDERS: ADMIT Internal Medicine; ATTEND Internal Medicine

== ENCOUNTER 2019-07-11 00:59 | Inpatient (IN) ==
[2019-07-11] MEDS ORDERED: Naloxone 0.4 MG/ML INJ IVP PRN (04:43)
--- NOTE | 2019-07-11 05:02 | Internal Med History&Physical ---
Date of Encounter: 07/11/19 Time of Encounter: 04:30 Internal Medicine - H&P: HPI Chief complaint: Chest Pain/General Illness Admitted From: Hospital to Hospital Transfer ([facility]) Plans for Post Hospital Care: Home History of present illness: Mr. Braun is a 24 year old male with past medical history significant for Hepatitis C, anxiety, depression, IV drug abuse, and tobacco abuse on no daily medications who presents as hospital transfer from [facility] for multiple complaints. Patient reports not feeling well in general. Has been having chest pain, hallucinations, hypotension, generalized aches, pains, diaphoresis, and nausea getting progressively worse since leaving [facility] on 07/08/19. Patient reports he was not having any chest pain when previously admitted, that this has developed over past few days and is described as intermittent pressure in his left chest that resolves spontaneously and is rated at 9/10 when at its worst. Also reports checking blood pressures at home and t hey have been low with systolic readings under 100. Otherwise hes experiencing similar general complaints he did at his last presentation. Patient reports his hallucinations come and go and have been occurring for several months and are nothing new. Patient was admitted on 07/06/19 after being transferred from [facility] for what was initially thought to be drug withdrawal symptoms but was found to have fever and abnormal labs indicating infection of unknown origin. He was given fluid resuscitation and started on Vancomycin and Cefepime. During that stay a TTE was performed showing 60% EF and no vegetation, negative UA, no evidence of skin infection, low concern for pneumonia from chest CT, normal chest xray, and gallbladder ultrasound with gallbladder wall thickening but no evidence of acute cholecystitis. A SANDRA was being considered for further evaluation given no other source of infection identified and history of IV drug abuse, however patient left [place] before obtaining and did not fill his outpatient antibiotics. REview of blood cultures from previous admission show 1/4 positive for pantoea agglomerans. Sending ER obtained a head CT which no acute intracranial abnormality. Sending ER obtained EKG which showed sinus rhythm. Sending ER obtained UA which was negative. Sending ER also obtained labs including CBC, BMP, Lactic Acid, CRP, Troponin, Ammonia, Lipase, and Magnesium all of which were in normal limits besides Hemoglobin of 13.0, Lactic Acid of 1.5, CRP of 2.6. Patient reports receiving only zofran while at sending ER. Currently denies any headache, numbness, tingling, chest pain, shortness of breath, abdominal pain, nausea, bowel or bladder changes. Just states he has generalized aches and pains currently. Denies regularly following with a PCP or any other provider. Reports continued IV drug abuse with heroin and methamphetamine with last use 2 days ago. Also reports smoking half pack of cigarettes daily. Denies any alcohol use. Past Med Surg Social Fam HX - Past Medical History Medical history: hepatitis Additional medical history: Hepatitis C. Latent TB Psychiatric history: anxiety, depression - Past Surgical History Surgical History: no surgical history - Social History Smoking Status: Current every day smoker Packs per day: 0.5 Smokeless Tobacco Status: No Alcohol use: none Drug use: opiates, IV Drug Use, other Internal Medicine - H&P: Meds Cefdinir [Omnicef] 300 mg PO BID #6 capsule 07/08/19 [Rx] Allergy/AdvReac Type Severity Reaction Status Date / Time Amoxicillin Allergy Hives Verified 07/06/19 15:28 doxycycline Allergy Hives Verified 07/06/19 15:28 Penicillins Allergy Hives Verified 07/06/19 15:28 All Systems PM: A 10-system review of systems was performed and is negative for pertinent findings except as documented above in the HPI. - Constitutional Vitals: Temp Pulse Resp BP Pulse Ox 97.9 F 63 15 149/81 99 07/11/19 03:25 07/11/19 03:25 07/11/19 03:25 07/11/19 03:25 07/11/19 03:25 Exam: General: Alert and oriented. Skin:Normal color, no rash, no lesions. Cardiovascular:Normal S1 & S2, no rubs, murmurs or gallops. No JVD. Pulse regular. Lungs:Breath sounds decreased, no wheezes or crackles. Abdomen:Soft, non-tender, no rigidity. Extremities:No deformity, no edema or tenderness, no joint swelling or clubbing. Neurological:Normal cognition and motor skills. Pulses:Carotid and radial pulses normal +2. Rest of the physical exam is non contributory. - Assessment and Plan (1) Chest pain Current Visit: Yes Status: Acute Assessment and plan: Intermittent left sided chest pain over past few days. Initial troponin at sending ER negative, serial troponins ordered. Continuous cardiac monitoring. TTE completed during last admission showing 60% EF and no vegetation, SANDRA was being considered. Cardiology consult ordered, will need called in a.m. Qualifiers: Chest pain type: unspecified Qualified Code(s): R07.9 - Chest pain, unsp ecified (2) Elevated lactic acid level Current Visit: Yes Status: Acute Assessment and plan: Elevated at 1.5 at sending ER with their normal range of 0.3 to 1.3. 2L fluid bolus ordered. Repeat labs ordered. Repeat blood cultures ordered. Previous cultures 1/4 positive for pantoea agglomerans. No increased white blood cell count or fever, blood pressure stable. Received Vancomycin and Cefepime during last admission and did not fill outpatient antibiotics. A SANDRA was being considered during last admission for further evaluation given no other source of infection identified and history of IV drug abuse. (3) General ill feeling Current Visit: Yes Status: Acute Assessment and plan: Possibly secondary to underlying infection and/or drug withdrawal. Plan as stated above. (4) Hepatitis C Current Visit: Yes Status: Chronic Assessment and plan: Chronic, continue to monitor. Labs ordered. Qualifiers: Viral hepatitis chronicity: chronic Qualified Code(s): B18.2 - Chronic viral hepatitis C (5) IV drug abuse Current Visit: Yes Status: Chronic Assessment and plan: Cessation strongly encouraged. senior manager creative services consult ordered. (6) Tobacco abuse Current Visit: Yes Status: Chronic Assessment and plan: Cessation strongly encouraged. - Time Spent With Patient Total time spent is greater than 50% in coordination of care (as documented) at patient's floor/unit and/or counseling patient:
[2019-07-11] MEDS: 0.9 % Sodium Chloride 1,000 ML IVC SCH ×2 (05:16→06:41)
[2019-07-11 05:35] LABS: Basophils % 0.3 %; Eosinophils # 0.1 K/mcL (0.0-0.6); Eosinophils % 0.8 %; Hematocrit 38.2 % (37.5-50.1); Immature Granulocytes % 1.7 % (0-4); Lymphocytes # 2.6 K/mcL (0.6-4.6); Lymphocytes % 32.9 %; Mean Corpuscular HGB Conc 33.5 g/dL (31.6-35.5); Mean Corpuscular Hemoglobin 29.5 pg (28.0-33.3); Monocytes # 0.5 K/mcL (0.0-1.3); Monocytes % 6.2 %; Neutrophils # 4.5 K/mcL (1.6-8.9); Platelet Count 190 K/mcL (140-400); Red Blood Count 4.34 M/mcL (4.19-5.50); Red Cell Distribution Width 14.1 % (11.5-14.5); Segmented Neutrophils % 58.1 %
[2019-07-11 05:40] LABS: Hemoglobin 12.8 g/dL (12.9-16.9); White Blood Count 7.8 K/mcL (4.3-11.1)
[2019-07-11 05:45] LABS: Alanine Aminotransferase 29 Units/L (7-52); Albumin 3.6 g/dL (3.5-5.7); Albumin/Globulin Ratio 1.3 (1.1-2.2); Alkaline Phosphatase 82 Units/L (34-104); Aspartate Amino Transferase 16 Units/L (13-39); BUN/Creatinine Ratio 16 (6-26); Bilirubin,Total 0.3 mg/dL (0.3-1.0); Blood Urea Nitrogen 13 mg/dL (6-20); Calcium 8.9 mg/dL (8.6-10.3); Carbon Dioxide 28 mEq/L (23-29); Chloride 103 mEq/L (98-107); Globulin 2.8 g/dL (2.4-3.5); Glucose 101 mg/dL (70-105); Osmolality,Calculated 290 (280-300); Potassium 3.6 mEq/L (3.5-5.1); Sodium 140 mEq/L (136-145); Total Protein 6.4 g/dL (6.4-8.9); eGFR For African Americans > 60 (> 60); eGFR For Non-African Americans > 60 (> 60)
[2019-07-11 09:37] LABS: Bilirubin,Urine Negative (Negative); Blood,Urine Negative (Negative); Clarity,Urine Clear (Clear); Color,Urine Yellow (Yellow); Glucose,Urine (UA) Normal (Normal); Ketones,Urine Negative (Negative); Leukocyte Esterase,Urine Negative (Negative); Nitrite,Urine Negative (Negative); PH,Urine 6.5 pH Units (5.0-8.0); Protein,Urine Negative (Neg-Trace); Specific Gravity,Urine 1.016 (1.010-1.025); Urobilinogen,Urine Normal (Normal)
[2019-07-11] MEDS ORDERED: levoFLOXacin 750 MG TABLET PO SCH (09:45)
[2019-07-11 09:50] LABS: Amphetamine Screen,Urine Positive ng/mL (Cutoff=1000); Barbiturate Screen,Urine Negative ng/mL (Cutoff=200); Benzodiazepines Screen,Urine Negative ng/mL (Cutoff=200); Cannabinoid Screen,Urine Negative ng/mL (Cutoff = 50); Cocaine Screen,Urine Negative ng/mL (Cutoff= 300); Opiate Screen,Urine Positive ng/mL (Cutoff=300); Phencyclidine Screen,Urine Negative ng/mL (Cutoff=25)
[2019-07-11] MEDS: Nicotine 21 MG PATCH.TD24 TD SCH (10:17)
--- NOTE | 2019-07-11 15:12 | Internal Med Progress Note ---
Hospitalist Progress Note - Encounter Date of Encounter: 07/11/19 Time of Encounter: 08:30 - Subjective Interval History: Mr. Braun presented to [facility] c/o worsening generalized malaise, pains, diaphoresis, and nausea. Pt has hx of HepC, IV drug use (last use was heroin and amph 07/09/19), and anxiety. Pt was examined at bedside today. He reports feeling better than last time he was admitted; admits to generalized mid-abdominal pain, intermittent chest tightness, and intermittent nausea/diarrhea. Pt reported that his feet were swollen yesterday. Denied hallucinations today, but admitted to some yesterday. Denied fever, chills, night sweats, [place], palpitations, cough, wheezing or vomitting. - Exam Vitals: Temp Pulse Resp BP Pulse Ox 98.1 F 55 16 151/84 98 07/11/19 11:14 07/11/19 11:14 07/11/19 11:14 07/11/19 11:14 07/11/19 11:14 Exam: General: pleasant, well-nourished, in no acute distress Heart: RRR, no thrill or heaves, capillary refill <1sec Resp: CTA b/l, no crackles, rhonci, or wheezing. No accessory muscle use. No cyanosis. HENT: PERRLA, no mouth lesions, neck supple, no lymphadenopathy, no thyromegaly Abdomen: tender to palpation, soft, non-distended, round abdomen, normoactive bowel sounds x4 Skin: warm, dry, and intact, no rashes : no bladder tenderness MSK: no ankle swelling noted, no nail lesions or abnormalities Neuro: alert and oriented, comprehends and answers questions appropriately; strength 5/5 UE and LE b/l - Summary of Assessment and Plan Summary of Assessment and Plan: Mr. Braun is a 24yo gentleman who returned to ED d/t worsening of generalized pain, malaise, and nausea. PMH of HepC, IV drug use, 1/2 +BCx from 07/06/19 grew Pantoea agglomerans. Lactic acid 1.3, wbc 7.8, procalcitonin 3.81. Head CT, ECG, UA, HIV sero all neg. UA +opioids and amph. 1- Gram-negative bactermia: positive BCx P. agglomerans (8/8/19) - Resume targeted tx of Levofloxacin 750mg po since pt left A[facility] last visit before completing dose 2- Generalized malaise - Order CMP to assess LFTs - Pending BCx x2 3- Chest pain: 07/10/19 ECG neg, 07/06/19 TTE neg, 1/ BCx +P. agglomerans - Cardio consult in place; awaiting further rec's - SANDRA order placed to assess to IE vegetations 4- IV drug use - Naloxone 0.4mg IVP prn - Time Spent with Patient Total time spent is greater than 50% in coordination of care (as documented) at patient's floor/unit and/or counseling patient: Internal Medicine: Result - Labs CBC & Chem 7: 07/11/19 05:06 07/11/19 05:06 Labs: Short CBC 07/11/19 Range/Units 05:06 WBC 7.8 D (4.3-11.1) K/mcL Hgb 12.8 L D (12.9-16.9) g/dL Hct 38.2 (37.5-50.1) % Plt Count 190 (140-400) K/mcL Neutrophils # 4.5 (1.6-8.9) K/mcL BMP 07/11/19 05:06 Sodium 140 Potassium 3.6 Chloride 103 Carbon Dioxide 28 BUN 13 Creatinine 0.79 Glucose 101 Calcium 8.9 Cardiac Enzymes 07/11/19 Range/Units 05:06 Troponin I < 0.03 (< 0.04) ng/mL Liver Function 07/11/19 Range/Units 05:06 Total Bilirubin 0.3 (0.3-1.0) mg/dL AST 16 (13-39) Units/L ALT 29 (7-52) Units/L Alkaline Phosphatase 82 (34-104) Units/L Albumin 3.6 (3.5-5.7) g/dL Urine 07/11/19 Range/Units 09:22 Urine Color Yellow (Yellow) Urine Clarity Clear (Clear) Urine pH 6.5 (5.0-8.0) pH Units Ur Specific [place] 1.016 (1.010-1.025) Urine Protein Negative (Neg-Trace) mg/dL Urine Glucose (UA) Normal (Normal) mg/dL Consult Discharge Plan - Plan Referrals: NONE,PCP [Primary Care Provider] -
[2019-07-12] MEDS ORDERED: *HR* OxyCODONE Immed Rel 5 MG TABLET PO ONE (01:12)
--- NOTE | 2019-07-12 04:46 | Event Note ---
Date of Encounter: 07/12/19 Time of Encounter: 04:10 Alerted by patient's nurse that lab called positive blood culture results. Blood cultures done at [facility] on 07/06/19 showed positive yeast in blood as well as Pantoea agglomerans. Patient currently on IVPB Levaquin which is contraindicated with fluconazole for current yeast in blood due to high risk for QT prolongation and Torsades de pointes. Levaquin DC'd and replaced with aztreonam IVPB 1000 mg every 8 hour and fluconazole IVPB 400 mg daily ordered for infection coverage. Nurse alerted of abx changes and instructed to notify me immediately of any adverse changes.
[2019-07-12 04:50] LABS: Basophils % 0.5 %; Eosinophils % 0.3 %; Hemoglobin 12.8 g/dL (12.9-16.9); Immature Granulocytes % 2.5 % (0-4); Lymphocytes # 2.1 K/mcL (0.6-4.6); Lymphocytes % 23.4 %; Mean Corpuscular HGB Conc 32.8 g/dL (31.6-35.5); Mean Corpuscular Hemoglobin 28.5 pg (28.0-33.3); Mean Corpuscular Volume 86.9 fL (83.0-100.0); Mean Platelet Volume 11.6 fL (9.4-12.4); Monocytes # 0.5 K/mcL (0.0-1.3); Platelet Count 205 K/mcL (140-400); Red Blood Count 4.49 M/mcL (4.19-5.50); Red Cell Distribution Width 13.7 % (11.5-14.5); Segmented Neutrophils % 67.3 %; White Blood Count 8.9 K/mcL (4.3-11.1)
[2019-07-12 05:14] LABS: BUN/Creatinine Ratio 19 (6-26); Blood Urea Nitrogen 14 mg/dL (6-20); Calcium 8.9 mg/dL (8.6-10.3); Carbon Dioxide 24 mEq/L (23-29); Chloride 105 mEq/L (98-107); Glucose 150 mg/dL (70-105); Osmolality,Calculated 285 (280-300); Potassium 3.8 mEq/L (3.5-5.1); Sodium 136 mEq/L (136-145); eGFR For African Americans > 60 (> 60); eGFR For Non-African Americans > 60 (> 60)
[2019-07-12] MEDS: Aztreonam 1,000 MG in 0.9 % Sodium Chloride Mini Bag 100 ML IVPB SCH ×2 (08:12→16:58)
[2019-07-12] MEDS: Nicotine 21 MG PATCH.TD24 TD SCH (08:13)
--- NOTE | 2019-07-12 09:02 | Internal Med Progress Note ---
<Emiliano Ag F - Last Filed: 07/12/19 12:35> Hospitalist Progress Note - Encounter Date of Encounter: 07/12/19 Time of Encounter: 09:02 - Subjective Interval History: Patient was seen and examined at bedside. No acute events overnight. Patient endorses some lower back pain, but no chest pain this morning. He feels significantly better compared to over the weekend. Denies any nausea, vomiting, fevers, chills, abdominal pain, constipation, diarrhea. - Exam Vitals: Temp Pulse Resp BP Pulse Ox 98.3 F 80 16 107/63 96 07/12/19 07:11 07/12/19 07:11 07/12/19 07:11 07/12/19 07:11 07/12/19 07:11 Exam: General: pleasant, well-nourished, in no acute distress HEENT: NC/AT, PERRLA, no mouth lesions, neck supple, no lymphadenopathy, no thyromegaly Heart: RRR, no thrill or heaves, capillary refill <1sec Resp: CTA b/l, no crackles, rhonci, or wheezing. No accessory muscle use. No cyanosis. Abdomen: diffusely tender to palpation, non-distended abdomen, active bowel sounds x4, firm but not rigid, no rebound/guarding Skin: warm, dry, and intact, no rashes : no bladder tenderness or CVA tenderness MSK: no ankle swelling noted, no nail lesions or abnormalities Neuro: alert and oriented, comprehends and answers questions appropriately; strength 5/5 UE and LE b/l Pysch: normal affect, no depressed or anxious. - Assessment and Plan (1) Chest pain Current Visit: Yes Status: Acute Assessment and Plan: Patient presented with chest pain in the setting of IVDU. Currently without chest pain. Concern for endocarditis, prev TTE showed normal EF with no vegetations. Plan: - Will get CTA chest to assess for PE, septic emboli, pericarditis - Consider cardiology consult, consider SANDRA for further evaluation (2) Bacteremia Current Visit: Yes Status: Acute Assessment and Plan: Patient had positive blood culture showing gram-negative bacteria and yeast. Concern for blood culture contamination versus bacteremia secondary to multiple organisms with possible immunocompromise. Plan: - Repeated blood cultures, will tailor abx therapy as needed - Stopped levaquin, started on aztreonam and fluconazole - ID consulted regarding changing abx/antifungal treatment - Monitor vital signs, labs, clinical picture for sepsis - Consider lumbar/sacral MRI for back pain, possible abscess/osteomyelitis (3) Hepatitis C Current Visit: Yes Status: Chronic Assessment and Plan: Chronic issue. LFTs are normal. (4) IV drug abuse Current Visit: Yes Status: Chronic Assessment and Plan: Hx of heroin, meth use. UDS pos for opiates and methamphetamines. - Counseling was provided - Consult placed to child protective services social worker - Naloxone 0.4 mg IVP when necessary (5) General ill feeling Current Visit: Yes Status: Acute Assessment and Plan: CMP shows LFTs within normal limits. Pending repeat blood cultures 2. DVT Prophylaxis: DVT ppx: SCDs Activity: ambulatory FEN: No fluids, replete as necessary, RLD GI ppx: N/A Lines: 1x PIV Consults: ID Code: Full code Dispo: Pending further evaluation and treatment - Time Spent with Patient Total time spent is greater than 50% in coordination of care (as documented) at patient's floor/unit and/or counseling patient: less than 15 minutes Plan of Care Discussed with: patient Internal Medicine: Result - Labs CBC & Chem 7: 07/12/19 03:20 07/12/19 03:20 Labs: Short CBC 07/12/19 Range/Units 03:20 WBC 8.9 (4.3-11.1) K/mcL Hgb 12.8 L (12.9-16.9) g/dL Hct 39.0 (37.5-50.1) % Plt Count 205 (140-400) K/mcL Neutrophils # 6.0 (1.6-8.9) K/mcL BMP 07/12/19 03:20 Sodium 136 Potassium 3.8 Chloride 105 Carbon Dioxide 24 BUN 14 Creatinine 0.74 Glucose 150 H Calcium 8.9 Urine 07/11/19 Range/Units 09:22 Urine Color Yellow (Yellow) Urine Clarity Clear (Clear) Urine pH 6.5 (5.0-8.0) pH Units Ur Specific [place] 1.016 (1.010-1.025) Urine Protein Negative (Neg-Trace) mg/dL Urine Glucose (UA) Normal (Normal) mg/dL Consult Discharge Plan - Plan Referrals: Soraya Knowles OUTREACH MANAGER [Advanced Practice Nurse] - 07/21/19 1:00 pm (Please arrive to appointment 30 minutes prior to appointment time to fill out all necessary paperwork. Please bring ID, insurances, and all medications in bottles. If you can not make it to appointment, please call ahead of time 24 hours to cancel/reschedule.) <ChuckygabrielaRob brittul Vanessahollie - Last Filed: 07/12/19 16:00> Hospitalist Progress Note - Encounter Date of Encounter: 07/12/19 - Exam Vitals: Temp Pulse Resp BP Pulse Ox 98.1 F 68 16 124/70 100 07/12/19 10:59 07/12/19 10:59 07/12/19 10:59 07/12/19 10:59 07/12/19 10:59 - Assessment and Plan (1) Chest pain Current Visit: Yes Status: Acute (2) Elevated lactic acid level Current Visit: Yes Status: Acute (3) Hepatitis C Current Visit: Yes Status: Chronic (4) IV drug abuse Current Visit: Yes Status: Chronic (5) Tobacco abuse Current Visit: Yes Status: Chronic (6) General ill feeling Current Visit: Yes Status: Acute - Time Spent with Patient Total time spent is greater than 50% in coordination of care (as documented) at patient's floor/unit and/or counseling patient: Internal Medicine: Result - Labs CBC & Chem 7: 07/12/19 03:20 07/12/19 03:20 Labs: Short CBC 07/12/19 Range/Units 03:20 WBC 8.9 (4.3-11.1) K/mcL Hgb 12.8 L (12.9-16.9) g/dL Hct 39.0 (37.5-50.1) % Plt Count 205 (140-400) K/mcL Neutrophils # 6.0 (1.6-8.9) K/mcL BMP 07/12/19 03:20 Sodium 136 Potassium 3.8 Chloride 105 Carbon Dioxide 24 BUN 14 Creatinine 0.74 Glucose 150 H Calcium 8.9 - Impressions Impressions Chest CTA 07/12/19 12:16 IMPRESSION: No evidence of acute pulmonary embolism. Small bilateral pleural effusions and bibasilar pulmonary opacities are new since previous examination. No evidence of focal consolidative pneumonia. No evidence of cavitary pulmonary nodule to suggest septic embolism. Contrast density material within the stomach presumably represents recently ingested material. Possibility of upper GI bleeding should be excluded clinically. Reflux of contrast into the IVC may be seen in setting of right heart failure. Clinical correlation is recommended. The findings were sent to the Radiology Results Communication Center at 1:25 pm on 07/12/2019to be communicated to a licensed caregiver. D/ / 07/12/2019 13:29:12 Anil Beltran [facility] Interpreting Provider: Anil Beltran MD - Attending Attestation I examined this patient and my medical decision-making was reviewed with the Resident Physician. I agree with the documented findings, disposition and treatment plan as described except to the extent set forth below. <Emiliano Ag - Last Filed: 07/12/19 12:35> (1) Chest pain Qualifiers: Chest pain type: unspecified Qualified Code(s): R07.9 - Chest pain, unspecified (3) Hepatitis C Qualifiers: Viral hepatitis chronicity: chronic Qualified Code(s): B18.2 - Chronic viral hepatitis C <Amparo Langford - Last Filed: 07/12/19 16:00> (1) Chest pain Qualifiers: Chest pain type: unspecified Qualified Code(s): R07.9 - Chest pain, unspecified (3) Hepatitis C Qualifiers: Viral hepatitis chronicity: chronic Qualified Code(s): B18.2 - Chronic viral hepatitis C
[2019-07-12] MEDS ORDERED: Fluconazole 400 MG/200 ML 400 MG/200 ML BAG IVPB SCH (10:00)
[2019-07-12] MEDS ORDERED: Isovue-370 500 ML BOTTLE IVP ONE (12:16)
--- NOTE | 2019-07-12 16:29 | Infectious Disease Consult ---
Infectious Disease-Consult - Encounter Date/Time Date of Encounter: 07/12/19 Time of Encounter: 16:03 - Data of Consult Patient: new to practice Reason for consult: Bacteremia with gram-negative robert and Aziza species Consult date: 07/12/19 Requesting Physician: Amparo Langford MD Primary Care Provider: PCP NONE - HPI HPI: Patient is a 24-year-old gentleman who was admitted to [facility] 07/11/2019 as a tra nsfer from [facility] emergency department for chest pain and generalized illness. We are consulted on 07/12/2019 for bacteremia and antibiotic recommendations. Briefly, patient is a 24-year-old gentleman who presented to [facility] on 07/06/2019 with chills and rigors. At that time CT chest revealed bilateral lower lobe interstitial edema. It may have represented pneumonia or noncardiogenic pu lmonary edema. Mild enlargement the Estinyl and right hilar lymph nodes likely reactive.. Oral edema liver is enlarged and hepatitis is a consideration." Those gallbladder wall thickening and possible pericholecystic fluid. Mild purulent thickening suspecting of the right colon/cecum. Retroperitoneal fat stranding in the upper abdomen. At that time initially had leukopenia with WBC of 25 that jumped to 25.9 with bandemia on 07/08/2019. Patient had an echocardiogram which showed no vegetation. Patient apparently signed out AGAINST MEDICAL ADVICE and was given Omnicef. Patient was doing worse clinically and he was having chest pain feeling with fatigued and weak and decided to come back for evaluation. Since admission, patient was afebrile, had episodes of tachycardia, without tach ypnea. Presenting labs revealed a WBC of 7.8 with normal differential. Rest of the chemistry showed normal BUN and creatinine, normal LFTs, normal bilirubin. Pro calcitonin was elevated at 3.81. A urinalysis was within normal limits. Urine drug screen was positive for opiates and amphetamines. HIV testing was negative. Repeat blood cultures were obtained and patient was started on aztreonam and fluconazole. We were asked to evaluate the patient's make further recommendations. Currently patient laying in bed appears comfortable no acute distress. Girlfriend is at bedside. Patient tells me he had hepatitis about 5 years ago. 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 That happened about 10 years ago w hen he was 12 or 13. Patient is also allergic to amoxicillin, penicillin and doxycycline all of which cause him to have a rash. Patient's review of system is positive for pleuritic chest pain, generalized fatigue and weakness, tenderness over the thoracic and lumbar spine on physical exam. No nausea no vomiting no diarrhea no constipation no abdominal pain no urinary symptoms. - ROS Review of Systems: 10 point review of systems done, negative other for what mentioned in history of present illness - Results CBC & Chem 7: 07/12/19 03:20 07/12/19 03:20 - Exam Vitals: Temp Pulse Resp BP Pulse Ox 98.1 F 68 16 124/70 100 07/12/19 10:59 07/12/19 10:59 07/12/19 10:59 07/12/19 10:59 07/12/19 10:59 Exam: GENERAL: Laying in bed, appears comfortable. HEAD: Normocephalic atraumatic EYES: PERRLA, EOMI, no conjunctival hemorrhage, sclera anicteric ENT: Mucous membranes moist, no oral thrush NECK: Supple. No meningeal signs. No masses LUNGS: Chest expanding symmetrically. Lungs sounds audible both lung don. No wheezing, no rhonchi CV: RRR, S1S2, he does have a murmur that is high patient states 2 out of 6 that is audible on the left sternal border ABDOMEN: Soft, nontender, nondistended. Bowel sounds audible BACK: No CVA tenderness. Normal inspection. There are 2 tender spots 1 and the lumbosacral area and one in the thoracic area. EXTREMITY: Adequate perfusion. No joint effusion. SKIN: Normal color. No rash. No endocarditis stigmata NEURO: Awake alert oriented 3. No obvious focal deficit PSYCH: Calm and appropriate. No agitation. No Known Home Drugs 07/11/19 [History] Allergy/AdvReac Type Severity Reaction Status Date / Time Amoxicillin Allergy Hives Verified 07/11/19 16:06 doxycycline Allergy Hives Verified 07/11/19 16:06 Penicillins Allergy Hives Verified 07/11/19 16:06 - Assessment and Plan (1) Gram-negative bacteremia Current Visit: No Status: Acute Causative organism Pantoea agglomerans pansensitive Patient supposedly allergic to amoxicillin and penicillin but has tolerated Omnicef and other cephalosporins in the past DC aztreonam start the patient on ceftriaxone 2 g IV every 24 hours Await repeat cultures to finalize SNOMED Code(s): 951233049464 (2) Fungemia Current Visit: Yes Status: Acute Blood culture 07/06/2019 1/2 sets positive for yeast species. No Aziza was picked up on that PCR which makes me concerned for an atypical Aziza infection. Await identification Patient is really on Diflucan DC Diflucan and start micafungin Patient has repeat cultures await results Will need ophthalmology evaluation prior to discharge SNOMED Code(s): 139285577 (3) IVDU (intravenous drug user) Current Visit: Yes Status: Acute SNOMED Code(s): 831134301 (4) Hepatitis C Current Visit: Yes Status: Chronic Chronic Diagnosed about 5 years ago Never been treated Qualifiers: Viral hepatitis chronicity: chronic Qualified Code(s): B18.2 - Chronic viral hepatitis C SNOMED Code(s): 71912485 (5) Latent tuberculosis Current Visit: Yes Status: Acute Was treated with 9 months of INH/B6 about 10 years ago SNOMED Code(s): 15119556 (6) Allergy to multiple antibiotics Current Visit: Yes Status: Acute Amoxicillin - rash Penicillin - rash Doxycycline - rash Past tolerated oral Keflex and oral Omnicef in the past SNOMED Code(s): 082560294474616 - Recommendations Recommendations: DC aztreonam DC fluconazole Start micafungin 100 mg IV every 24 hours Start Rocephin 2 g IV every 24 hours Await cultures to finalize SANDRA prior to discharge Ophthalmology evaluation to rule out endophthalmitis prior to discharge Consider CT of the spine to rule out discitis/osteomyelitis Monitor labs and for drug toxicity Past Med Surg Social Fam HX - Past Medical History Medical history: hepatitis Additional medical history: Hepatitis C. Latent TB Psychiatric history: anxiety, depression - Past Surgical History Surgical History: no surgical history - Social History Smoking Status: Current every day smoker Packs per day: 0.5 Smokeless Tobacco Status: No Alcohol use: none Drug use: opiates, IV Drug Use, other Consult Discharge Plan - Plan Referrals: Soraya Knowles [employer] WORKER [Advanced Practice Nurse] - 07/21/19 1:00 pm (Please arrive to appointment 30 minutes prior to appointment time to fill out all necessary paperwork. Please bring ID, insurances, and all medications in bottles. If you can not make it to appointment, please call ahead of time 24 hours to cancel/reschedule.)
[2019-07-12] MEDS: cefTRIAXone 2,000 MG in 0.9 % Sodium Chloride Mini Bag 100 ML IVPB SCH (17:30)
[2019-07-12] MEDS: Micafungin 100 MG in 0.9 % Sodium Chloride Mini Bag 100 ML IVPB SCH (18:05)
[2019-07-13 02:04] LABS: Hematocrit 39.1 % (37.5-50.1); Hemoglobin 12.7 g/dL (12.9-16.9); Mean Corpuscular HGB Conc 32.5 g/dL (31.6-35.5); Mean Corpuscular Volume 89.3 fL (83.0-100.0); Platelet Count 213 K/mcL (140-400); Red Blood Count 4.38 M/mcL (4.19-5.50); Red Cell Distribution Width 14.2 % (11.5-14.5); White Blood Count 7.7 K/mcL (4.3-11.1)
[2019-07-13 02:17] LABS: BUN/Creatinine Ratio 20 (6-26); Blood Urea Nitrogen 19 mg/dL (6-20); Calcium 8.9 mg/dL (8.6-10.3); Carbon Dioxide 26 mEq/L (23-29); Chloride 105 mEq/L (98-107); Glucose 101 mg/dL (70-105); Osmolality,Calculated 286 (280-300); Potassium 3.8 mEq/L (3.5-5.1); Sodium 137 mEq/L (136-145); eGFR For African Americans > 60 (> 60); eGFR For Non-African Americans > 60 (> 60)
--- NOTE | 2019-07-13 07:51 | Internal Med Progress Note ---
<Dayana Joaquin M - Last Filed: 07/13/19 13:40> Hospitalist Progress Note - Encounter Date of Encounter: 07/13/19 Time of Encounter: 09:48 - Subjective Interval History: Mr. Braun was examined at bedside today, pt reports feeling same as yeterday. No acute events o/n or new complaints. Pt reports sacral point tenderness and pain. Denied fever, chills, fatigue, night sweats, [place], chest pain, palpitations, cough, wheezing or N/V/D. - Exam Vitals: Temp Pulse Resp BP Pulse Ox 97.7 F 59 16 111/55 99 07/13/19 06:26 07/13/19 06:26 07/13/19 06:26 07/13/19 06:26 07/13/19 06:26 Exam: General: pleasant, well-nourished, in no acute distress HEENT: neck supple, no lymphadenopathy, no thyromegaly Heart: RRR, no thrill or heaves, capillary refill <1sec Resp: CTA b/l, no crackles, rhonci, or wheezing. No accessory muscle use. No cyanosis. Abdomen: firm, non-tender, non-distended abdomen, active bowel sounds x4 Skin: warm, dry, and intact, no rashes MSK: no ankle swelling noted, no nail lesions or abnormalities Neuro: pt sleepy, but was able to answer quetsiosn and respond appropriately. - Assessment and Plan (1) Gram-negative bacteremia Current Visit: Yes Status: Acute Assessment and Plan: positive 1/2 BCx P. agglomerans (07/06/19) - Per ID rec's, d/c aztreonam and start rocephin 2g IV q24h (2) Fungemia Current Visit: Yes Status: Acute Assessment and Plan: positive 1/2 BCx of yeast (07/06/19); PCR for amie neg - Per ID rec's, d/c diflucan and start micafungin 100mg IVBP qd - Optho consult placed for possible seeding of retinal and/or choroidal vessels (3) Back pain Current Visit: Yes Status: Acute Assessment and Plan: point tenderness in sacrum, lumbar, thoracic regions c/o potential abscess - MRI w/ contrast of thorax, lumbar and sacrum - Continue lidocaine patch prn for pain (4) Chest pain Current Visit: Yes Status: Acute Assessment and Plan: 07/10/19 ECG neg, 07/06/19 TTE neg - Per cardiology, SANDRA is deferred and not indicated at this time d/t pt not having leuckocyotis or other signs of infection as well as a negative TTE; given pt's history of IVDU, pt is at increased risk of complication if sedated for SANDRA. (5) IVDU (intravenous drug user) Current Visit: Yes Status: Acute Assessment and Plan: - Naloxone 0.4mg IVP prn - Oxycodone 10mg prn for withdrawal (6) Tobacco dependence Current Visit: Yes Status: Acute Assessment and Plan: - Nicotine patch prn (7) Malaise Current Visit: Yes Status: Acute Assessment and Plan: possibly d/t hepatitis and/or bactermia/fungemia above. Pt is HepC+ altho LFTs are wnl. DVT Prophylaxis: SCD - Time Spent with Patient Total time spent is greater than 50% in coordination of care (as documented) at patient's floor/unit and/or counseling patient: Internal Medicine: Result - Labs CBC & Chem 7: 07/13/19 01:36 07/13/19 01:36 Labs: Short CBC 07/13/19 Range/Units 01:36 WBC 7.7 (4.3-11.1) K/mcL Hgb 12.7 L (12.9-16.9) g/dL Hct 39.1 (37.5-50.1) % Plt Count 213 (140-400) K/mcL BMP 07/13/19 01:36 Sodium 137 Potassium 3.8 Chloride 105 Carbon Dioxide 26 BUN 19 Creatinine 0.97 Glucose 101 Calcium 8.9 - Impressions Impressions Chest CTA 07/12/19 12:16 IMPRESSION: No evidence of acute pulmonary embolism. Small bilateral pleural effusions and bibasilar pulmonary opacities are new since previous examination. No evidence of focal consolidative pneumonia. No evidence of cavitary pulmonary nodule to suggest septic embolism. Contrast density material within the stomach presumably represents recently ingested material. Possibility of upper GI bleeding should be excluded clinically. Reflux of contrast into the IVC may be seen in setting of right heart failure. Clinical correlation is recommended. The findings were sent to the Radiology Results Communication [facility] at 1:25 pm on 07/12/2019to be communicated to a licensed caregiver. D/ / 07/12/2019 13:29:12 Anil Beltran MD / stephanie Interpreting Provider: Anil Beltran MD Abdomen/Pelvis CT 07/12/19 22:02 IMPRESSION: Bilateral pleural effusions and pelvic ascites. Hepatosplenomegaly. D/ / Rg Osman MD / Rg Osman MD Interpreting Provider: Rg Osman MD - VTE Documentation of Mechanical Device: Intermittent pneumatic compression device Consult Discharge Plan - Plan Referrals: Soraya Knowles, DICTAPH[employer] TRANSCRIBER [Advanced Practice Nurse] - 07/21/19 1:00 pm (Please ar rive to appointment 30 minutes prior to appointment time to fill out all necessary paperwork. Please bring ID, insurances, and all medications in bottles. If you can not make it to appointment, please call ahead of time 24 hours to cancel/reschedule.) <Amparo Langford - Last Filed: 07/13/19 14:10> Hospitalist Progress Note - Encounter Date of Encounter: 07/13/19 - Exam Vitals: Temp Pulse Resp BP Pulse Ox 98.0 F 60 16 104/69 99 07/13/19 11:40 07/13/19 11:40 07/13/19 11:40 07/13/19 11:40 07/13/19 11:40 - Assessment and Plan (1) Chest pain Current Visit: Yes Status: Acute (2) Elevated lactic acid level Current Visit: Yes Status: Acute (3) Hepatitis C Current Visit: Yes Status: Chronic (4) IV drug abuse Current Visit: Yes Status: Chronic (5) Tobacco abuse Current Visit: Yes Status: Chronic (6) General ill feeling Current Visit: Yes Status: Acute - Time Spent with Patient Total time spent is greater than 50% in coordination of care (as documented) at patient's floor/unit and/or counseling patient: Internal Medicine: Result - Labs CBC & Chem 7: 07/13/19 01:36 07/13/19 01:36 Labs: Short CBC 07/13/19 Range/Units 01:36 WBC 7.7 (4.3-11.1) K/mcL Hgb 12.7 L (12.9-16.9) g/dL Hct 39.1 (37.5-50.1) % Plt Count 213 (140-400) K/mcL [facility] 07/13/19 01:36 Sodium 137 Potassium 3.8 Chloride 105 Carbon Dioxide 26 BUN 19 Creatinine 0.97 Glucose 101 Calcium 8.9 - Impressions Impressions Abdomen/Pelvis CT 07/12/19 22:02 IMPRESSION: Bilateral pleural effusions and pelvic ascites. Hepatosplenomegaly. D/ / Rg Osman MD / Rg Osman MD Interpreting Provider: Rg Osman MD - Attending Attestation I examined this patient and my medical decision-making was reviewed with the medical student. I agree with the documented findings, disposition and treatment plan as described except to the extent set forth below. Patient had no complaints, no acute events. He denies fevers/chills. Cardiac ausculation and lung ausculation unremarkable. Lumbar spine tender to minimal palpation. For G negative robert bacteremia and also possible fungemia; continue Rocephin 2 g Q24H and micafungin per ID recommendations. Opthalmology evaluation prior to DC, follow-up cultures. Additional images of lumbar spine a s patient is having tenderness there. <Amparo Langford - Last Filed: 07/13/19 14:10> (1) Chest pain Qualifiers: Chest pain type: unspecified Qualified Code(s): R07.9 - Chest pain, unspecified (3) Hepatitis C Qualifiers: Viral hepatitis chronicity: chronic Qualified Code(s): B18.2 - Chronic viral hepatitis C
[2019-07-13] MEDS: Nicotine 21 MG PATCH.TD24 TD SCH (10:35)
[2019-07-13] MEDS: Micafungin 100 MG in 0.9 % Sodium Chloride Mini Bag 100 ML IVPB SCH (10:36)
[2019-07-13] MEDS ORDERED: Gadolinium Contrast Agent (WT Based) IV PRN (13:01)
[2019-07-13] MEDS ORDERED: Ondansetron ODT 4 MG TAB.RAPDIS SL PRN (14:08)
[2019-07-13] MEDS: cefTRIAXone 2,000 MG in 0.9 % Sodium Chloride Mini Bag 100 ML IVPB SCH (17:28)
--- NOTE | 2019-07-13 19:34 | Infectious Disease Progress No ---
ID Progress Note Date of Encounter: 07/13/19 Time of Encounter: 19:31 - Subjective Subjective: Patient seen and examined. Patient is awake alert oriented walking around in the room. Review of system is negative for chest pain or shortness of breath negative for nausea or vomiting no diarrhea no urinary symptoms. Patient tells me has good appetite. Vital signs noted Labs reviewed - Objective CBC & Chem 7: 07/13/19 01:36 07/13/19 01:36 - Exam Vitals: Temp Pulse Resp BP Pulse Ox 98.0 F 63 16 103/59 98 07/13/19 18:54 07/13/19 18:54 07/13/19 18:54 07/13/19 18:54 07/13/19 18:54 Exam: GENERAL: Comfortable. Laying in bed NAD HEENT: JERMAINE, EOMI LUNGS: Good air sounds bilaterally, no wheezing or rhonchi CV: RRR, S1 S2 ABDOMEN: Soft, nontender, + bowel sounds EXT: Adequate perfusion. No edema NEURO: A&OX3; no focal deficit - Assessment and Plan (1) Gram-negative bacteremia Current Visit: No Status: Acute Causative organism Pantoea agglomerans pansensitive Patient supposedly allergic to amoxicillin and penicillin but has tolerated Omnicef and other cephalosporins in the past DC aztreonam start the patient on ceftriaxone 2 g IV every 24 hours Await repeat cultures to finalize SNOMED Code(s): 767860008641 (2) Fungemia Current Visit: Yes Status: Acute Blood culture 07/06/2019 1/2 sets positive for yeast species. No Aziza was picked up on that PCR which makes me concerned for an atypical Aziza infection. Await identification Patient is really on Diflucan DC Diflucan and start micafungin Patient has repeat cultures await results Will need ophthalmology evaluation prior to discharge SNOMED Code(s): 396857331 (3) IVDU (intravenous drug user) Current Visit: Yes Status: Acute SNOMED Code(s): 036100812 (4) Hepatitis C Current Visit: Yes Status: Chronic Chronic Diagnosed about 5 years ago Never been treated Qualifiers: Viral hepatitis chronicity: chronic Qualified Code(s): B18.2 - Chronic viral hepatitis C SNOMED Code(s): 11993434 (5) Latent tuberculosis Current Visit: Yes Status: Acute Was treated with 9 months of INH/B6 about 10 years ago SNOMED Code(s): 08052252 (6) Allergy to multiple antibiotics Current Visit: Yes Status: Acute Amoxicillin - rash Penicillin - rash Doxycycline - rash Past tolerated oral Keflex and oral Omnicef in the past SNOMED Code(s): 346626235499730 - Recommendations Recommendations: all repeat cultures are negative so far Yeast species has not been identified Awaiting for identification A review of his switch the patient to oral antibiotics on discharge No endocarditis stigmata on physical exam Awaiting ophthalmology evaluation prior to DC as well Monitor labs and for drug toxicity - VTE Documentation of Mechanical Device: Intermittent pneumatic compression device Consult Discharge Plan - Plan Referrals: Soraya Knowles, BREADMAN [Advanced Practice Nurse] - 07/21/19 1:00 pm (Please arriv e to appointment 30 minutes prior to appointment time to fill out all necessary paperwork. Please bring ID, insurances, and all medications in bottles. If you can not make it to appointment, please call ahead of time 24 hours to cancel/reschedule.)
[2019-07-14 04:14] LABS: Hematocrit 39.6 % (37.5-50.1); Hemoglobin 13.1 g/dL (12.9-16.9); Mean Corpuscular HGB Conc 33.1 g/dL (31.6-35.5); Mean Corpuscular Hemoglobin 29.9 pg (28.0-33.3); Mean Corpuscular Volume 90.4 fL (83.0-100.0); Platelet Count 220 K/mcL (140-400); Red Blood Count 4.38 M/mcL (4.19-5.50); Red Cell Distribution Width 14.2 % (11.5-14.5); White Blood Count 8.8 K/mcL (4.3-11.1)
[2019-07-14 04:28] LABS: BUN/Creatinine Ratio 21 (6-26); Blood Urea Nitrogen 16 mg/dL (6-20); Carbon Dioxide 26 mEq/L (23-29); Chloride 103 mEq/L (98-107); Glucose 97 mg/dL (70-105); Osmolality,Calculated 285 (280-300); Potassium 3.9 mEq/L (3.5-5.1); Sodium 137 mEq/L (136-145); eGFR For African Americans > 60 (> 60); eGFR For Non-African Americans > 60 (> 60)
--- NOTE | 2019-07-14 08:45 | Internal Med Progress Note ---
<Dayana Joaquin - Last Filed: 07/14/19 15:52> Hospitalist Progress Note - Encounter Date of Encounter: 07/14/19 Time of Encounter: 09:00 - Subjective Interval History: Mr. Braun was examined at bedside today, pt reports feeling good overall with some back pain. No acute events o/n or new complaints. Denied fever, chills, fatigue, night sweats, [place], chest pain, palpitations, cough, wheezing or N/V/D. - Exam Vitals: Temp Pulse Resp BP Pulse Ox 98.1 F 64 16 109/58 98 07/14/19 06:55 07/14/19 06:55 07/14/19 06:55 07/14/19 06:55 07/14/19 06:55 Exam: General: pleasant, well-nourished, in no acute distress HEENT: neck supple, no lymphadenopathy, no thyromegaly Heart: RRR, no thrill or heaves, capillary refill <1sec Resp: CTA b/l, no crackles, rhonci, or wheezing. No accessory muscle use. No cyanosis. Abdomen: firm, non-tender, non-distended abdomen, active bowel sounds x4 Skin: warm, dry, and intact, no rashes MSK: no ankle swelling noted, no nail lesions or abnormalities Neuro: AOx3, able to comprehend and answer questions appropriately. - Assessment and Plan (1) Gram-negative bacteremia Status: Acute Assessment and Plan: Positive 1/2 BCx P. agglomerans (07/06/19). New BCx x2 from 07/11/19 still incubating. -Continue aztreonam and rocephin -ID/Dr. Nelson recommends that pt be given flucanozol and omnicef in case pt leaves AMA or be d/c. Discharge abx ready. (2) Fungemia Status: Acute Assessment and Plan: Positive 1/2 BCx of yeast (07/06/19); PCR for amie neg. -Continue micafungin 100mg IVBP qd -Optho consult, no evidence of ophthalmic disease or seeding of retinal and/or choroidal vessels -Plan for outpatient abx as above (3) Back pain Status: Acute Assessment and Plan: Point tenderness in sacrum, lumbar, thoracic regions c/o potential abscess -No signs of abscess, discitis, or osteomyelitis on MRI T/L/S spine -Continue lidocaine patch prn for pain (4) Chest pain Status: Acute Assessment and Plan: 07/10/19 ECG neg, 07/06/19 TTE neg -Pain not present on exam today -Per cardiology, SANDRA is deferred and not indicated at this time d/t pt not having leuckocyotis or other signs of infection as well as a negative TTE; given pt's history of IVDU, pt is at increased risk of complication if sedated for SANDRA. (5) IVDU (intravenous drug user) Status: Chronic Assessment and Plan: - Naloxone 0.4mg IVP prn - Hydroxyzine 10mg prn for withdrawal (6) Tobacco dependence Status: Chronic Assessment and Plan: - Nicotine patch prn (7) Malaise Status: Chronic Assessment and Plan: possibly d/t hepatitis and/or bactermia/fungemia above. Pt is HepC+ altho LFTs are wnl on admission. DVT Prophylaxis: SCD - Time Spent with Patient Total time spent is greater than 50% in coordination of care (as documented) at patient's floor/unit and/or counseling patient: Internal Medicine: Result - Labs CBC & Chem 7: 07/14/19 03:47 07/14/19 03:47 Labs: Short CBC 07/14/19 Range/Units 03:47 WBC 8.8 (4.3-11.1) K/mcL Hgb 13.1 (12.9-16.9) g/dL Hct 39.6 (37.5-50.1) % Plt Count 220 (140-400) K/mcL BMP 07/14/19 03:47 Sodium 137 Potassium 3.9 Chloride 103 Carbon Dioxide 26 BUN 16 Creatinine 0.78 Glucose 97 Calcium 9.0 - Impressions Impressions Lumbar Spine MRI 07/13/19 13:01 IMPRESSION: No MRI evidence of osteodiscitis or septic arthritis. No epidural or paraspinal abscess identified. Mild pelvic ascites. D/ / Rg Osman MD / Rg Osman MD Interpreting Provider: Rg Osman MD Sacrum/Coccyx MRI 08/15/19 13:01 IMPRESSION: No MRI evidence of osteodiscitis or septic arthritis. No epidural or paraspinal abscess identified. Mild pelvic ascites. D/ / Rg Osman MD / Rg Osman MD Interpreting Provider: Rg Osman MD Thoracic Spine MRI 07/13/19 13:01 IMPRESSION: 1. No acute abnormality identified of the thoracic spine. 2. No significant spinal canal stenosis or neural foraminal narrowing. 3. Trace bilateral pleural effusions. D/ / Marlon Taylor MD / Marlon Taylor MD Interpreting Provider: Marlon Taylor MD - VTE Documentation of Mechanical Device: Intermittent pneumatic compression device Consult Discharge Plan - Plan Instructions: Fluconazole (By mouth), Cefdinir (By mouth), Chest Pain (DC) Additional Instructions: You were admitted to the hospital for chest pain and bacterial infection in your bloodstream. You were treated with IV antibiotics. Please take fluconazole and omnicef as prescribed for their entire duration of treatment to treat the infection. A CT scan and MRI did not identify any sources of infection such as an abscess or bone infection in your spine. Please follow up with your primary care provider in 1-2 weeks to discuss your hospitalization and for further management and evaluation. Please return to the emergency department should you experience worsening of your symptoms such as chest pain, back pain, abdominal pain, nausea, vomiting, fevers, chills. Referrals: Soraya Knowles STRUCTURAL ANALYST [Advanced Practice Nurse] - 07/21/19 1:00 pm (Please arrive to appointment 30 minutes prior to appointment time to fill out all necessary paperwork. Please bring ID, insurances, and all medications in bottles. If you can not make it to appointment, please call ahead of time 24 hours to cancel/reschedule.) Prescriptions: Fluconazole [Diflucan] 400 mg PO DAILY #60 tab Cefdinir [Omnicef] 300 mg PO BID #14 capsule <Amparo Langford - Last Filed: 07/14/19 21:25> Hospitalist Progress Note - Encounter Date of Encounter: 07/14/19 - Exam Vitals: Temp Pulse Resp BP Pulse Ox 97.3 F L 76 14 123/74 100 07/14/19 14:58 07/14/19 14:58 07/14/19 14:58 07/14/19 14:58 07/14/19 14:58 - Assessment and Plan (1) Chest pain Status: Acute (2) Elevated lactic acid level Status: Acute (3) Hepatitis C Status: Chronic (4) IV drug abuse Status: Chronic (5) Tobacco abuse Status: Chronic (6) General ill feeling Status: Resolved - Time Spent with Patient Total time spent is greater than 50% in coordination of care (as documented) at patient's floor/unit and/or counseling patient: Internal Medicine: Result - Labs CBC & Chem 7: 07/14/19 03:47 07/14/19 03:47 Labs: Short CBC 07/14/19 Range/Units 03:47 WBC 8.8 (4.3-11.1) K/mcL Hgb 13.1 (12.9-16.9) g/dL Hct 39.6 (37.5-50.1) % Plt Count 220 (140-400) K/mcL BMP 07/14/19 03:47 Sodium 137 Potassium 3.9 Chloride 103 Carbon Dioxide 26 BUN 16 Creatinine 0.78 Glucose 97 Calcium 9.0 - Impressions Impressions Lumbar Spine MRI 07/13/19 13:01 IMPRESSION: No MRI evidence of osteodiscitis or septic arthritis. No epidural or paraspinal abscess identified. Mild pelvic ascites. D/ / Rg Osman MD / Rg Osman MD Interpreting Provider: Rg Osman MD Sacrum/Coccyx MRI 07/13/19 13:01 IMPRESSION: No MRI evidence of osteodiscitis or septic arthritis. No epidural or paraspinal abscess identified. Mild pelvic ascites. D/ / Rg Osman MD / Rg Osman MD Interpreting Provider: Rg Osman MD Thoracic Spine MRI 07/13/19 13:01 IMPRESSION: 1. No acute abnormality identified of the thoracic spine. 2. No significant spinal canal stenosis or neural foraminal narrowing. 3. Trace bilateral pleural effusions. D/ / Marlon Taylor MD / Marlon Taylor MD Interpreting Provider: Marlon Taylor MD - Attending Attestation I examined this patient and my medical decision-making was reviewed with the medical student and resident physician. I agree with the documented findings, disposition and treatment plan as described except to the extent set forth bel ow. Patient will be discharged today, see discharge summary for hospital course. <Amparo Langford - Last Filed: 07/14/19 21:25> (1) Chest pain Qualifiers: Chest pain type: unspecified Qualified Code(s): R07.9 - Chest pain, unspecified (3) Hepatitis C Qualifiers: Viral hepatitis chronicity: chronic Qualified Code(s): B18.2 - Chronic viral hepatitis C
[2019-07-14] MEDS: Micafungin 100 MG in 0.9 % Sodium Chloride Mini Bag 100 ML IVPB SCH (08:51)
[2019-07-14] MEDS: Nicotine 21 MG PATCH.TD24 TD SCH (08:51)
--- NOTE | 2019-07-14 13:43 | Internal Medicine Consult Note ---
Date of Encounter: 07/14/19 Time of Encounter: 13:42 Internal Medicine - CN: HPI - Data of Consult Requesting Physician: Amparo Langford MD - Consult Narrative History of present illness: Mr. Braun is a 24 year old male Past Med Surg Social Fam HX - Past Medical History Medical history: hepatitis Additional medical history: Hepatitis C. Latent TB Psychiatric history: anxiety, depression - Past Surgical History Surgical History: no surgical history - Social History Smoking Status: Current every day smoker Packs per day: 0.5 Smokeless Tobacco Status: No Alcohol use: none Drug use: opiates, IV Drug Use, other Internal Medicine - CN: Meds Cefdinir [Omnicef] 300 mg PO BID #14 capsule 07/14/19 [Rx] Fluconazole [Diflucan] 400 mg PO DAILY #60 tab 07/14/19 [Rx] Allergy/AdvReac Type Severity Reaction Status Date / Time Amoxicillin Allergy Hives Verified 07/11/19 16:06 doxycycline Allergy Hives Verified 07/11/19 16:06 Penicillins Allergy Hives Verified 07/11/19 16:06 Internal Med - CN: Exam - Constitutional Vitals: Temp Pulse Resp BP Pulse Ox 97.4 F L 85 16 119/67 98 07/14/19 11:31 07/14/19 11:31 07/14/19 11:31 07/14/19 11:31 07/14/19 11:31 - GI/Abdominal GI/Abdominal exam IM: Present: no peritoneal signs - Other Additional findings: Consultation was requested by Amparo Langford Reason for consultation gram-negative bacteremia and fungemia/rule out end ophthalmitis History: Patient denies any ocular symptoms reports good vision and comfort of the eyes. His past ocular history is negative for surgeries and injuries. Examination: Visual acuity without correction was 20/25+2 in the right eye and 20/20 in the left eye (near equivalent Snellen). Confrontation visual don were full and normal in both eyes. Extraocular motility testing revealed full excursion of both eyes to all cardinal positions of gaze. The pupils were equal round and reactive to light with no relative afferent pupillary defects noted. External examination was unremarkable for both eyes. Slit-lamp examination revealed normal eyelids in both eyes. The conjunctiva was normal in both eyes. The cornea was clear in both eyes. The anterior chamber was grade 3 in depth and clear in both eyes. The iris was normal in both eyes. Intraocular pressures were normal at 13 mmHg in the right eye and 14 mmHg in the left eye. The pupils were dilated with 1% tropicamide and 2-1/2% phenylephrine drops. Following dilation of the pupils further examination revealed a clear lens in both eyes. There was a very mild pupillary membrane in the right eye more so than in the left eye. The iris was normal in both eyes. The vitreous was clear in both eyes. The optic nerve heads were normal in both eyes. The cup-to-disc ratio was 0.45 in the right eye and 0.3 in the left eye. The macula was normal in both eyes. The retinal vessels were normal in both eyes. The posterior pole and retinal periphery was normal in both eyes. Impression: Normal eye examination. No evidence of endophthalmitis was appreciated. Recommendation: Continue present treatment is indicated. Please contact me if patient's visual situation changes or if indicated by other changes in the patient's clinical condition. Huber Hoang D.O. Internal Medicine - CN: Reslt - Labs CBC & Chem 7: 07/14/19 03:47 07/14/19 03:47 Labs: Short CBC 07/14/19 Range/Units 03:47 WBC 8.8 (4.3-11.1) K/mcL Hgb 13.1 (12.9-16.9) g/dL Hct 39.6 (37.5-50.1) % Plt Count 220 (140-400) K/mcL BMP 07/14/19 03:47 Sodium 137 Potassium 3.9 Chloride 103 Carbon Dioxide 26 BUN 16 Creatinine 0.78 Glucose 97 Calcium 9.0 - Impressions Impressions Lumbar Spine MRI 07/13/19 13:01 IMPRESSION: No MRI evidence of osteodiscitis or septic arthritis. No epidural or paraspinal abscess identified. Mild pelvic ascites. D/ / Rg Osman MD / Rg Osman MD Interpreting Provider: Rg Osman MD Sacrum/Coccyx MRI 07/13/19 13:01 IMPRESSION: No MRI evidence of osteodiscitis or septic arthritis. No epidural or paraspinal abscess identified. Mild pelvic ascites. D/ / Rg Osman MD / Rg Osman MD Interpreting Provider: Rg Osman MD Thoracic Spine MRI 07/13/19 13:01 IMPRESSION: 1. No acute abnormality identified of the thoracic spine. 2. No significant spinal canal stenosis or neural foraminal narrowing. 3. Trace bilateral pleural effusions. D/ / Marlon Taylor MD / Marlon Taylor MD Interpreting Provider: Marlon Taylor MD Consult Discharge Plan - Plan Referrals: Soraya Knowles, CADDY [Advanced Practice Nurse] - 07/21/19 1:00 pm (Please arrive to appointment 30 minutes prior to appointment time to fill out all necessary paperwork. Please bring ID, insurances, and all medications in bottles. If you can not make it to appointment, please call ahead of time 24 hours to cancel/reschedule.) Prescriptions: Fluconazole [Diflucan] 400 mg PO DAILY #60 tab Cefdinir [Omnicef] 300 mg PO BID #14 capsule
[2019-07-14 15:01] VITALS: BP 123/74
--- NOTE | 2019-07-14 16:19 | Discharge Summary ---
<Emiliano Ag - Last Filed: 07/14/19 16:51> - NOTES TO OUTPATIENT PROVIDER Notes to Outpatient Provider: Please follow up patient is taking fluconazole and omnicef as prescribed to treat infection. Please monitor for worsening of infection. Also follow-up pending blood cultures on this hospitalization. Orders not resulted at time of discharge: Pending orders 07/11/19 05:06 Culture,Blood [BC] Stat Estimated PT Needs at Discharge: None Estimated OT Needs at Discharge: None Estimated ST Needs at Discharge: None Date of Encounter: 07/14/19 Time of Encounter: 16:14 - Discharge Diagnosis (1) Bacteremia Priority: Primary Status: Acute (2) Chest pain Priority: Secondary Status: Acute Qualifiers: Chest pain type: unspecified Qualified Code(s): R07.9 - Chest pain, unspecified (3) Hepatitis C Priority: Secondary Status: Chronic Qualifiers: Viral hepatitis chronicity: chronic Qualified Code(s): B18.2 - Chronic viral hepatitis C (4) IV drug abuse Priority: Secondary Status: Chronic (5) General ill feeling Priority: Secondary Status: Resolved (6) Fungemia Priority: Secondary Status: Acute (7) Latent tuberculosis Priority: Secondary Status: Chronic (8) Gram-negative bacteremia Priority: Secondary Status: Acute (9) Back pain Priority: Secondary Status: Acute Qualifiers: Back pain location: back pain in unspecified location Chronicity: unspecified Back pain laterality: midline Qualified Code(s): M54.89 - Other dorsalgia Hospital course: Mr. Braun is a 24 year old male with past medical history significant for Hepatitis C, anxiety, depression, IV drug abuse, and tobacco abuse on no daily medications who presents as hospital transfer from [facility] for multiple complaints. Patient reports not feeling well in general. Has been having chest pain, hallucinations, hypotension, generalized aches, pains, diaphoresis, and nausea getting progressively worse since leaving [facility] on 07/08/19. Patient reports he was not having any chest pain when previously admitted, that this has developed over past few days and is described as intermittent pressure in his left chest that resolves spontaneously and is rated at 9/10 when at its worst. Otherwise hes experiencing similar general complaints he did at his last presentation. Patient was admitted on 07/06/19 after being transferred from [facility] for what was initially thought to be drug withdrawal symptoms but was found to have fever and abnormal labs indicating infection of unknown origin. He was given fluid resuscitation and started on Vancomycin and Cefepime. During that stay a TTE was performed showing 60% EF and no vegetation, negative UA, no evidence of skin infection, low concern for pneumonia from chest CT, normal chest xray, and gallbladder ultrasound with gallbladder wall thickening but no evidence of acute cholecystitis. A SANDRA was being considered for further evaluation given no other source of infection identified and history of IV drug abuse, however patient left AMA before obtaining and did not fill his outpatient antibiotics. Review of blood cultures from previous admission show 1/4 positive for pantoea agglomerans. Sending ER obtained a head CT which no acute intracranial abnormality. Sending ER obtained EKG which showed sinus rhythm. Sending ER obtained UA which was negative. Sending ER also obtained labs including CBC, BMP, Lactic Acid, CRP, Troponin, Ammonia, Lipase, and Magnesium all of which were in normal limits besides Hemoglobin of 13.0, Lactic Acid of 1.5, CRP of 2.6. Patient reports receiving only zofran while at sending ER. Currently denies any headache, numbness, tingling, chest pain, shortness of breath, ab dominal pain, nausea, bowel or bladder changes. Just states he has generalized aches and pains currently. Denies regularly following with a PCP or any other provider. Reports continued IV drug abuse with heroin and methamphetamine with last use 2 days ago. Also reports smoking half pack of cigarettes daily. Denies any alcohol use. Was started on fluconazole and aztreonam. Upon admission, infectious disease was consulted. Initially a SANDRA was ordered however it was discussed with cardiology and cardiology felt that a SANDRA was no longer indicated given that the patient did not have any clinical signs of endocarditis despite signs of fluid overload in the lungs, gallbladder. It would have also been difficult to sedate the patient given history of IV drug use in order to conduct a SANDRA. Previous TTE was negative. support services specialist was consulted and sensation of IV drug and tobacco use was strongly encouraged. Infectious disease recommended that patient be started on micafungin and ceftriaxone, patient received his antibiotics for 3 days. This was to cover previous cultures with growth of P. agglomerans and unidentified yeast species. In ophthalmology evaluation was conducted, the patient did not have evidence of endophthalmitis. CT of the chest did not show any pneumonia or septic emboli. A CT abdomen and pelvis showed bilateral pleural effusions and pelvic ascites, hepatosplenomegaly. Since the patient was endorsing back pain, an MRI of the T/L/S spine was performed which did not show any evidence of abscess, osteomyelitis, discitis. At this point, it was discussed with ID that patient could be discharged home with fluconazole and Omnicef. He was given thorough instructions to take his antibiotics. Primary care follow-up was provided. Return precautions were provided. Discharge discussed with: patient Time spent discussing smoking cessation with patient: 3 to 10 minutes - Time Spent with Patient Total time spent providing and/or coordinating discharge services: Time spent: Less than 30 minutes - Discharge Medications Prescriptions: New Cefdinir [Omnicef] 300 mg PO BID #14 capsule Fluconazole [Diflucan] 400 mg PO DAILY #60 tab Home Medications: Cefdinir [Omnicef] 300 mg PO BID #14 capsule 07/14/19 [Rx] Fluconazole [Diflucan] 400 mg PO DAILY #60 tab 07/14/19 [Rx] Allergies/Adverse Reactions: Allergy/AdvReac Type Severity Reaction Status Date / Time Amoxicillin Allergy Hives Verified 07/11/19 16:06 doxycycline Allergy Hives Verified 07/11/19 16:06 Penicillins Allergy Hives Verified 07/11/19 16:06 Date of admission: 07/13/19 14:26 Primary care physician: PCP NONE Consults: 07/11/19 05:46 Consult to Prenatal Nurse [CONS] Routine Reason for SW Consult: History of IV drug abuse. 07/12/19 12:30 Consult to Infectious Diseases [CONS] Routine Consulting Provider: Infectious Disease [facility] Reason for Consult: cultures with yeast, gram neg organisms; currently on aztreonam/fluconazole, question to start micafungin Call Completed: Yes 07/13/19 08:38 Consult to Physician [CONS] Routine Consulting Provider: Huber Hoang Reason for Consult: IVDU/bacteremia, concern for endocarditis/endophthalmitis Time Notified: 08:39 Call Completed: Yes Discharging clinician: Amparo Langford Anticipated date of discharge: 07/14/19 - Constitutional Vitals: Temp Pulse Resp BP Pulse Ox 97.3 F L 76 14 123/74 100 07/14/19 14:58 07/14/19 14:58 07/14/19 14:58 07/14/19 14:58 07/14/19 14:58 Exam: General: pleasant, well-nourished, in no acute distress HEENT: NC/AT, neck supple, no lymphadenopathy, no thyromegaly Heart: RRR, no thrill or heaves, capillary refill <1sec Resp: CTA b/l, no crackles, rhonci, or wheezing. No accessory muscle use. No cyanosis. Abdomen: firm, non-tender, non-distended abdomen, active bowel sounds x4 : no suprapubic or CVA tenderness Skin: warm, dry, and intact, no rashes MSK: no ankle swelling noted, no nail lesions or abnormalities Back: tender in the thoracic and sacral spine on midline, no stepoffs or deformities Neuro: AOx3, able to comprehend and answer questions appropriately Pysch: appropriate effect, no depressed/anxious mood - Patient Status Disposition: Home, Self-Care Condition: Fair Functional capacity at discharge: independent ambulation Overall status at discharge: patient is progressing back to baseline - Discharge Instructions Instructions: Fluconazole (By mouth), Cefdinir (By mouth), Chest Pain (DC) Follow Up With: Soraya Knowles CNP [Advanced Practice Nurse] - 07/21/19 1:00 pm (Please arrive to appointment 30 minutes prior to appointment time to fill out all necessary paperwork. Please bring ID, insurances, and all medications in bottles. If you can not make it to appointment, please call ahead of time 24 hours to cancel/reschedule.) Additional Instructions: You were admitted to the hospital for chest pain and bacterial infection in your bloodstream. You were treated with IV antibiotics. Please take fluconazole and omnicef as prescribed for their entire duration of treatment to treat the infection. A CT scan and MRI did not identify any sources of infection such as an abscess or bone infection in your spine. Please follow up with your primary care provider in 1-2 weeks to discuss your hospitalization and for further management and evaluation. Please return to the emergency department should you experience worsening of your symptoms such as chest pain, back pain, abdominal pain, nausea, vomiting, fevers, chills. - Diet and Activity Activity: increase activity as tolerated Diet: regular diet - VTE Documentation of Mechanical Device: Intermittent pneumatic compression device <Amparo Langford - Last Filed: 07/14/19 21:26> Orders not resulted at time of discharge: Pending orders 07/11/19 05:06 Culture,Blood [BC] Stat Date of Encounter: 07/14/19 - Discharge Diagnosis (1) Chest pain Status: Acute Qualifiers: Chest pain type: unspecified Qualified Code(s): R07.9 - Chest pain, unspecified (2) Elevated lactic acid level Status: Acute (3) Hepatitis C Status: Chronic Qualifiers: Viral hepatitis chronicity: chronic Qualified Code(s): B18.2 - Chronic viral hepatitis C (4) IV drug abuse Status: Chronic (5) Tobacco abuse Status: Chronic (6) General ill feeling Status: Resolved Hospital course: Mr. Braun is a 24 year old male - Time Spent with Patient Total time spent providing and/or coordinating discharge services: Date of admission: 07/13/19 14:26 Primary care physician: PCP NONE Consults: 07/11/19 05:46 Consult to Prenatal Nurse [CONS] Routine Reason for SW Consult: History of IV drug abuse. 07/12/19 12:30 Consult to Infectious Diseases [CONS] Routine Consulting Provider: Infectious Disease [facility] Reason for Consult: cultures with yeast, gram neg organisms; currently on aztreonam/fluconazole, question to start micafungin Call Completed: Yes 07/13/19 08:38 Consult to Physician [CONS] Routine Consulting Provider: Huber Hoang Reason for Consult: IVDU/bacteremia, concern for endocarditis/endophthalmitis Time Notified: 08:39 Call Completed: Yes - Constitutional Vitals: Temp Pulse Resp BP Pulse Ox 97.3 F L 76 14 123/74 100 07/14/19 14:58 07/14/19 14:58 07/14/19 14:58 07/14/19 14:58 07/14/19 14:58 - Attending Attestation I examined this patient and my medical decision-making was reviewed with the resident physician. I agree with the documented findings, disposition and treatment plan as described except to the extent set forth below.
--- NOTE | 2019-07-14 23:24 | Infectious Disease Progress No ---
ID Progress Note Date of Encounter: 07/14/19 Time of Encounter: 23:22 - Subjective Subjective: Patient seen and examined. Patient is awake alert oriented walking around in the room. Review of system is negative for chest pain or shortness of breath negative for nausea or vomiting no diarrhea no urinary symptoms. Patient tells me has good appetite. Vital signs noted Labs reviewed - Objective CBC & Chem 7: 07/14/19 03:47 07/14/19 03:47 - Exam Vitals: Temp Pulse Resp BP Pulse Ox 97.3 F L 76 14 123/74 100 07/14/19 14:58 07/14/19 14:58 07/14/19 14:58 07/14/19 14:58 07/14/19 14:58 Exam: GENERAL: Comfortable. Laying in bed NAD HEENT: JERMAINE, EOMI LUNGS: Good air sounds bilaterally, no wheezing or rhonchi CV: RRR, S1 S2 ABDOMEN: Soft, nontender, + bowel sounds EXT: Adequate perfusion. No edema NEURO: A&OX3; no focal deficit - Assessment and Plan (1) Gram-negative bacteremia Status: Acute Causative organism Pantoea agglomerans pansensitive Patient supposedly allergic to amoxicillin and penicillin but has tolerated Omnicef and other cephalosporins in the past DC aztreonam start the patient on ceftriaxone 2 g IV every 24 hours Await repeat cultures to finalize SNOMED Code(s): 508046569695 (2) Fungemia Status: Acute Blood culture 07/06/2019 1/2 sets positive for yeast species. No Aziza was picked up on that PCR which makes me concerned for an atypical Aziza infection. Await identification Patient is really on Diflucan DC Diflucan and start micafungin Patient has repeat cultures await results Will need ophthalmology evaluation prior to discharge SNOMED Code(s): 077836389 (3) IVDU (intravenous drug user) Status: Acute SNOMED Code(s): 651207375 (4) Hepatitis C Status: Chronic Chronic Diagnosed about 5 years ago Never been treated Qualifiers: Viral hepatitis chronicity: chronic Qualified Code(s): B18.2 - Chronic viral hepatitis C SNOMED Code(s): 86242919 (5) Latent tuberculosis Status: Chronic Was treated with 9 months of INH/B6 about 10 years ago SNOMED Code(s): 72447085 (6) Allergy to multiple antibiotics Status: Acute Amoxicillin - rash Penicillin - rash Doxycycline - rash Past tolerated oral Keflex and oral Omnicef in the past SNOMED Code(s): 278430700981371 - Recommendations Recommendations: This is a strange presentation patient had positive fungemia and bacteremia on 07/06 repeat cultures that same day and on 07/11 revealed no growth (before even starting treatment) not sure if this was a true infection no signs of endocarditis ophthalmology eval negative for endophalmitis ok to d/c on fluconazole and omnicef for 14 days d/w Dr. Langford - VTE Documentation of Mechanical Device: Intermittent pneumatic compression device Consult Discharge Plan - Plan Instructions: Fluconazole (By mouth), Cefdinir (By mouth), Chest Pain (DC) Additional Instructions: You were admitted to the hospital for chest pain and bacterial infection in your bloodstream. You were treated with IV antibiotics. Please take fluconazole and omnicef as prescribed for their entire duration of treatment to treat the infection. A CT scan and MRI did not identify any sources of infection such as an abscess or bone infection in your spine. Please follow up with your primary care provider in 1-2 weeks to discuss your hospitalization and for further management and evaluation. Please return to the emergency department should you experience worsening of your symptoms such as chest pain, back pain, abdominal pain, nausea, vomiting, fevers, chills. Referrals: Soraya Knowles CNP [Advanced Practice Nurse] - 07/21/19 1:00 pm (Please arrive to appointment 30 minutes prior to appointment time to fill out all necessary paperwork. Please bring ID, insurances, and all medications in bottles. If you can not make it to appointment, please call ahead of time 24 hours to cancel/reschedule.) Prescriptions: Fluconazole [Diflucan] 400 mg PO DAILY #60 tab Cefdinir [Omnicef] 300 mg PO BID #14 capsule
== END 2019-07-14 17:37 | disposition home or self-care (01) | DRG 872 ==
LOC: 3BNU → SUATTDRO 03:12
PROVIDERS: ADMIT Pediatrics; ATTEND Student in an Organized Health Care Education/Training Program

== ENCOUNTER 2020-12-08 23:04 | Observation (INO) ==
[2020-12-09] MEDS ORDERED: Nicotine 21 MG PATCH.TD24 TD STA ×2 (02:10→20:55)
[2020-12-09] MEDS ORDERED: traZODone 50 MG TABLET PO PRN (02:51)
[2020-12-09] MEDS ORDERED: *HR* LORazepam 1 MG TABLET PO PRN ×2 (02:51→20:39)
[2020-12-09] MEDS ORDERED: *HR* LORazepam 2 MG/ML VIAL IM PRN ×2 (02:51→20:39)
[2020-12-09] MEDS ORDERED: haloperidoL 5 MG TABLET PO PRN ×2 (02:51→20:39)
[2020-12-09] MEDS ORDERED: Haloperidol Lactate 5 MG/ML VIAL IM PRN ×2 (02:51→20:39)
[2020-12-09] MEDS ORDERED: hydrOXYzine pamoate 25 MG CAPSULE PO PRN ×2 (02:51→20:39)
[2020-12-09] MEDS ORDERED: Mag Hydrox/Al Hydrox/Simeth 30 ML UDC PO PRN ×2 (02:51→20:39)
[2020-12-09] MEDS ORDERED: Acetaminophen 325 MG TABLET PO PRN ×2 (02:51→20:39)
[2020-12-09] MEDS ORDERED: MOM Conc 10 ML UD.LIQ PO PRN (02:51)
[2020-12-09] MEDS ORDERED: QUEtiapine Fumarate 25 MG TABLET PO PRN (20:39)
[2020-12-10 09:31] VITALS: BP 113/56
== END 2020-12-10 11:25 | disposition home or self-care (01) ==
LOC: EMEROOARM 23:04 → 1ANU 23:04 → INTOOBSV 12-09 11:19
PROVIDERS: ADMIT Psychiatry & Neurology Psychiatry; ATTEND Psychiatry & Neurology Psychiatry

== ENCOUNTER 2021-04-07 18:50 | Observation (INO) | END 2021-04-07 22:07 | disposition short-term general hospital (02) | LOC: 3ANU | PROVIDERS: ADMIT Internal Medicine; ATTEND Internal Medicine ==